=== PATIENT | female | born 2000 | race Caucasian/White ===

== ENCOUNTER → 2021-03-20 08:40 | Outpatient (CLI) | payer BC, SELFPAY ==
[2021-03-21 16:09] LABS: Immunoglobulin G 1134 mg/dL (586-1602); Immunoglobulin M 98 mg/dL (26-217)
[2021-03-21 17:14] LABS: Immunoglobulin A 47 mg/dL (87-352); t-Transglutaminase IgA <2 U/mL (0-3)
== END ==
PROVIDERS: PCP Internal Medicine; Referring Provider Internal Medicine Gastroenterology; Visit Provider Internal Medicine Gastroenterology
DX: R74.8 Abnormal levels of other serum enzymes (principal)
CPT/HCPCS: 36415; 82784; 83516

== ENCOUNTER → 2022-09-23 | Outpatient (CLI) | payer BC, SELFPAY ==
--- NOTE | 2022-09-23 13:43 | CT_ITS ---
STUDY: CT ABDOMEN AND PELVIS WITH CONTRAST REASON FOR EXAM: Female, 22 years old. K92.1 -- blood in the stool. RADIATION DOSAGE (If Supplied By Facility): CTDIvol = ( 22.9 ) mGy, DLP = ( 1233.11 ) mGycm TECHNIQUE: Transaxial images were obtained from the dome of the diaphragm to the symphysis pubis with oral contrast. Oral and amp; IV Readi-CAT and amp; 100mL Isovue-300 was administered. Sagittal and coronal images were reconstructed. Individualized dose optimization techniques were used for this CT. COMPARISON: None. FINDINGS: The visualized lung bases are unremarkable. The visualized portions of the heart are within normal limits. There is decreased attenuation of the liver consistent with steatosis. Normal gallbladder and extrahepatic biliary system. Normal spleen. Normal pancreas. Normal bilateral adrenal glands. Normal right kidney. Normal left kidney. Normal visualized stomach. Normal small intestine. Moderate amount of fecal material seen in the colon. The appendix is visualized and appears normal. Normal abdominal aorta. Normal inferior vena cava. Normal retroperitoneum. Normal urinary bladder. IUD is seen within the uterus. There is a 2.8 cm x 1.5 cm cyst in the left ovary. Follicles are seen in the right ovary. Normal abdominal wall. Normal osseous structures. CT/Abdomen/Pelvis WITH Contrast IMPRESSION: Diffuse fatty infiltration of the liver. Electronically Signed: Nishant Livingston MD at 14:32 EDT ,
== END | disposition home or self-care (01) ==
PROVIDERS: PCP Internal Medicine; Referring Provider Internal Medicine; Visit Provider Internal Medicine
DX: K92.1 Melena (principal)
CPT/HCPCS: 74177; Q9967

== ENCOUNTER → 2022-10-16 | Outpatient (CLI) | payer BC, SELFPAY ==
--- NOTE | 2022-10-16 08:08 | US_ITS ---
STUDY: ABDOMINAL ULTRASOUND - RIGHT UPPER QUADRANT REASON FOR VISIT: Female, 22 years old . Fatty infiltration of the liver. TECHNIQUE: Ultrasound evaluation of the right upper quadrant was performed with real-time and static linares-scale imaging. TECHNICAL QUALITY: Adequate. COMPARISON: None. FINDINGS: Liver: The liver is enlarged and measures 17.9 cm. There is increased echogenicity consistent with fatty infiltration. The bile ducts are within normal limits. There is hepatic color flow. The direction of portal flow is hepatopetal. There is no demonstrated mass lesion. Gallbladder: Normal distended gallbladder. The gallbladder wall measures 2.7 mm. There is a negative sonographic Cruz''s sign. There is no pericholecystic fluid. There are no gallstones. Common Bile Duct (C.B.D.): The common bile duct measures 3.1 mm. Pancreas: Normal size of the head, body and tail of the pancreas. There is normal echogenicity of the pancreas. There is no demonstrated pancreatic mass or cyst. Right Kidney: Normal size of the right kidney. The right kidney measures 11.7 cm x 4.9 cm x 4.7 cm. Normal renal cortex. The right cortex measures 1.4 cm. There is no demonstrated renal mass or cyst. There is no right hydronephrosis. US/Abdomen Limited IMPRESSION: Hepatomegaly and diffuse fatty infiltration of the liver. Electronically Signed: Nishant Livingston MD at 9:10 [facility] ,
--- NOTE | 2022-10-16 08:19 | US_ITS ---
STUDY: ABDOMINAL ULTRASOUND - ELASTOGRAPHY REASON FOR VISIT: Female, 22 years old. Fatty infiltration of the liver. TECHNIQUE: Liver stiffness measurements were obtained on a [employer] RS 85 ultrasound machine using a CA 1-7 probe following the SRU guidelines. 3 measurements were obtained using a 2-D-SWE method. TheIQR/M was 19% suggesting a quality data set. TECHNICAL QUALITY: Adequate. COMPARISON: Comparison is made with prior examination done earlier today. FINDINGS: Liver: Fatty infiltration of the liver. Median liver stiffness measured 7.1 kPa. US/Elastography Parenchyma/Organ IMPRESSION: Liver stiffness measures 7.1 kPa compatible with F2-F3 (Mild to moderate liver fibrosis) Metavir score. Electronically Signed: Nishant Livingston MD at 9:12 EST ,
== END | disposition home or self-care (01) ==
LOC: US 08:08
PROVIDERS: PCP Internal Medicine; Referring Provider Internal Medicine; Visit Provider Internal Medicine
DX: K76.0 Fatty (change of) liver, not elsewhere classified (principal)
CPT/HCPCS: 76705; 76981

== ENCOUNTER → 2022-10-31 | Outpatient (CLI) | payer BC, SELFPAY ==
[2022-10-31 10:03] LABS: Erythrocyte Sedimentation Rate 31 mm/hr (0-30)
[2022-10-31 10:05] LABS: Absolute Lymphocyte Count 1.68 X10^3/uL (0.83-4.51); Absolute Neutrophil Count 6.9 X10^3/uL (2.0-7.7); Basophil# 0.05 X10^3/uL; Basophil% 0.5 % (0-1); Eosinophil# 0.32 X10^3/uL; Eosinophils% 3.3 % (0-5); Hematocrit 41.2 % (37-47); Hemoglobin 13.3 g/dL (12.0-15.0); Lymphocyte # 1.68 X10^3/ul (0.83-4.51); Lymphocyte % 17.3 % (19-41); Mean Corp Hgb Conc 32.3 g/dL (32-36); Mean Corpuscular Hgb 27.5 pg (27.0-32.0); Mean Corpuscular Volume 85.3 fL (81-99); Mean Platelet Vol. 8.9 fl (6.2-12.0); Monocyte# 0.69 X10^3/uL; Monocyte% 7.1 % (0-10); NRBC Flagged by Analyzer 0 % (0-5); Neutrophil # 6.92 X10^3/uL (2.7-7.7); Neutrophil % 71.5 % (47-70); Platelet Count 377 K/mm3 (150-450); RBC Distribution Width CV 12.4 % (11.6-14.6); RBC Distribution Width SD 38.7 fl (35.1-43.9); Red Blood Count 4.83 M/mm3 (4.2-5.4); White Blood Count 9.7 K/mm3 (4.4-11.0)
[2022-10-31 10:22] LABS: Hemoglobin A1c 5.2 % (3.8-5.6)
[2022-10-31 10:43] LABS: ALB/GLOB Ratio 0.8 RATIO (0.9-2.4); AST(SGOT) 14 U/L (15-37); Alanine Aminotransfer ALT/SGPT 27 U/L (13-56); Albumin, Serum 3.8 g/dL (3.2-5.0); Alkaline Phosphatase 84 U/L (45-117); Anion Gap 6 (5-15); BUN 11 mg/dL (7-18); BUN/Creat Ratio 13.8 RATIO (10-20); Calcium,Total 9.3 mg/dL (8.5-10.1); Chloride 107 mmol/L (98-107); EST Glomerular Filtration Rate 95 mL/min (>60); Est Glom Filt Rate - Afr Amer 115 mL/min (>60); Ferritin 27 ng/mL (8-252); Globulin 4.6 g/dL (2.2-4.2); Glucose 88 mg/dL (74-106); LDH 170 U/L (84-246); Potassium 3.9 mmol/L (3.5-5.1); Protein, Total 8.4 g/dL (6.4-8.2); Sodium Level 138 mmol/L (136-145)
[2022-10-31 11:08] LABS: HIV - WCH Non-Reactive (Nonreactive)
[2022-10-31 12:54] LABS: Triglycerides 174 mg/dL
[2022-11-01 15:08] LABS: Anti-Centromere B Ab <0.2 AI (0.0-0.9); Anti-Chromatin <0.2 AI (0.0-0.9); Anti-Jo <0.2 AI (0.0-0.9); Anti-Scleroderma-70 AB <0.2 AI (0.0-0.9); Endomysial Antibody IgA Negative (Negative); Immunoglobulin A 60 mg/dL (87-352); RNP Ab 0.2 AI (0.0-0.9); SJOGREN'S Anti-SS-A test < 0.2 AI (0.0-0.9); SJOGREN'S Anti-SS-B test < 0.2 AI (0.0-0.9); Smith Ab <0.2 AI (0.0-0.9)
[2022-11-01 16:37] LABS: t-Transglutaminase IgA <2 U/mL (0-3)
[2022-11-01 16:38] LABS: Anti-Mitochondrial AB <20.0 Units (0.0-20.0); Anti-dsDNA Ab 1 IU/mL (0-9)
[2022-11-04 15:07] LABS: Albumin 4.1 g/dL (2.9-4.4); Alpha-1-Globulins 0.3 g/dL (0.0-0.4); Alpha-2-Globulins 1.1 g/dL (0.4-1.0); Angiotensin Convert Enzyme 55 U/L (14-82); Ceruloplasmin 37.2 mg/dL (19.0-39.0); Cytoplasmic Ab (C-ANCA) <1:20 titer (Neg:<1:20); Gamma Globulin 1.3 g/dL (0.4-1.8); HEPATITIS B SURFACE AG Negative (Negative); Hep C Antibodies <0.1 s/co ratio (0.0-0.9); Hepatitis A IgM Antibody Negative (Negative); Hepatitis B Core AB IgM Negative (Negative); Immunoglobulin A 61 mg/dL (87-352); Immunoglobulin E 441 IU/mL (6-495); Immunoglobulin G 1358 mg/dL (586-1602); Immunoglobulin M 161 mg/dL (26-217)
[2022-11-05 14:56] LABS: Pancreatic Elastase, Fecal 379 (>200)
[2022-11-05 16:31] LABS: Calprotectin, Stool 61 ug/g (0-120)
[2022-11-05 16:59] LABS: AFP, Tumor Marker 6.1 ng/mL (0.0-4.7); Anti-Smooth Muscle ABS 7 Units (0-19); Copper, Serum or Plasma 154 ug/dL (80-158); Haptoglobin 288 mg/dL (33-278); Perinuclear Ab (P-ANCA) <1:20 titer (Neg:<1:20)
== END | disposition home or self-care (01) ==
PROVIDERS: PCP Internal Medicine; Referring Provider Internal Medicine Gastroenterology; Visit Provider Internal Medicine Gastroenterology
DX: K76.0 Fatty (change of) liver, not elsewhere classified (principal); R19.7 Diarrhea, unspecified
CPT/HCPCS: 36415; 80053; 80074; 82105; 82140; 82164; 82390; 82525; 82653; 82728; 82784; 82785; 83010; 83036; 83516; 83615; 83630; 83993; 84165; 84478; 85025; 85652; 86140; 86225; 86235; 86255; 86256; 86334; 86703; 87177; 87209; 87329; 87493; 87506

== ENCOUNTER → 2022-11-20 | Outpatient (CLI) | payer BC, SELFPAY | END | disposition home or self-care (01) | PROVIDERS: PCP Internal Medicine; Visit Provider Internal Medicine Gastroenterology | DX: R19.7 Diarrhea, unspecified (principal) | CPT/HCPCS: 36415 ==

== ENCOUNTER → 2022-12-11 | Outpatient (CLI) | payer BC, SELFPAY ==
[2022-12-11 15:58] LABS: Absolute Lymphocyte Count 2.32 X10^3/uL (0.83-4.51); Absolute Neutrophil Count 4.7 X10^3/uL (2.0-7.7); Basophil# 0.05 X10^3/uL; Basophil% 0.6 % (0-1); Eosinophil# 0.28 X10^3/uL; Eosinophils% 3.5 % (0-5); Hematocrit 38.4 % (37-47); Hemoglobin 12.5 g/dL (12.0-15.0); Lymphocyte # 2.32 X10^3/ul (0.83-4.51); Lymphocyte % 28.7 % (19-41); Mean Corp Hgb Conc 32.6 g/dL (32-36); Mean Corpuscular Hgb 28.2 pg (27.0-32.0); Mean Corpuscular Volume 86.7 fL (81-99); Mean Platelet Vol. 9.1 fl (6.2-12.0); Monocyte# 0.73 X10^3/uL; NRBC Flagged by Analyzer 0 % (0-5); Neutrophil # 4.68 X10^3/uL (2.7-7.7); Neutrophil % 57.8 % (47-70); Platelet Count 396 K/mm3 (150-450); RBC Distribution Width CV 12.4 % (11.6-14.6); RBC Distribution Width SD 39.5 fl (35.1-43.9); Red Blood Count 4.43 M/mm3 (4.2-5.4); White Blood Count 8.1 K/mm3 (4.4-11.0)
[2022-12-11 16:06] LABS: Erythrocyte Sedimentation Rate 12 mm/hr (0-30)
[2022-12-11 16:27] LABS: CRP 7.47 mg/L (0.0-3.0)
== END | disposition home or self-care (01) ==
LOC: LAB 15:04
PROVIDERS: PCP Internal Medicine; Visit Provider Internal Medicine Gastroenterology
DX: K92.1 Melena (principal)
CPT/HCPCS: 36415; 85025; 85652; 86140

== ENCOUNTER 2023-02-04 05:27 | Day surgery (SDC) | payer OTHER, BC, SELFPAY ==
[2023-02-04 05:56] VITALS: BP 130/80; PULSE 98; RESP 18; TEMP 36.7; O2SAT 100; BMI 33.4
[2023-02-04] MEDS: Lactated Ringers 1,000 ML 15 ML IV (05:59)
[2023-02-04 06:00] LABS: Internal QC Validated? YES +Cl - CLEAR BKGD; Pregnancy, Urine Negative Negative
--- NOTE | 2023-02-04 06:30 | COLBX_PTH ---
PATIENT: ESTELLA VEGAS LOC: EN U#:[id number] AGE/SX: 22/ ROOM: RE02/04/[address]: Dr. Darío Jones DO : 2000 BED: DIS: 02/04/2023 SPEC #: [id number] RECD: 02/05/23 06:44 STATUS: NATHEN REShweta #: [id number] ANTONI: 02/04/23 06:[address]: Darío Jones DEPT: SURGICAL PATHOLOGY RECD BY: Kathy Weller ENTERED: 02/05/23 08:04 SP TYPE: COLON BX ARISTIDES DR: Dr. Sofiya Del Castillo DO Tissues: A - Ileum, NOS B - COLON BIOPSY Procedures: Surgery Specimen Level IV HEADER OPERATION: Colonoscopy with biopsy (MAC) PRE-OP DIAGNOSIS: Fatty liver, diarrhea, GERD TISSUE SUBMITTED: A ? Terminal ileum biopsy, B ? Random colon biopsy MICROSCOPIC DIAGNOSIS A. Terminal ileum, biopsy: Fragments of small intestinal mucosa, no pathologic diagnosis. B. Colon, random biopsy: Fragments of colonic mucosa, no pathologic diagnosis. MARIA:yee 02/06/2023 MICROSCOPIC DESCRIPTION Slides are reviewed. GROSS DESCRIPTION A - Received in fixative is one container labeled with the patient's name and designated terminal ileum. The specimen consists of two irregular fragments of light garcia soft tissue that in aggregate measure 0.8 x 0.5 x 0.1 cm. The specimen is totally submitted in one cassette. B - Received in fixative is one container labeled with the patient's name and designated random colon biopsy. The specimen consists of multiple irregular fragments of light garcia soft tissue that in aggregate measure 1.5 x 0.5 x 0.1 cm. The specimen is totally submitted in two cassettes. / MARIA:yee 02/05/2023 TC:4 CPT: 93388 x2
--- NOTE | 2023-02-04 06:36 | HP.PCM_ITS ---
History and Physical Date of Admission: 02/04/23 ?22 F who presents to the office today for Initial consult. Josey established with this clinic 10.31.22 with referral from PCP. Loose stools with blood have been an issue since August consistently for two weeks and intermittently since then without abdominal pain. Previously saw GI who diagnosed IBS early last year for chronic diarrhea and was started on colestipol QD which was helpful and continues with this. No colonoscopy performed. History of heartburn and has since changed her diet and with this change she does not have difficulty and no medication required. PMH anxiety which she feels is overall well controlled. FH great grandmother colon cancer CT abd/pel 09.23.22 noting hepatic steatosis; moderate fecal material; left ovarian cyst. US RUQ and elastography 10.16.22 hepatic measurement 17.9cm with fatty infiltration and stiffness 7.1 kPa F1/2. PCP started Vitamin E 800IU and recommended weight loss. ROS Const Constitutional: Positive for other (6 system ROS completed with pertinent findings in HPI otherwise normal.) Exam Const General: cooperative, healthy appearing, comfortable and no acute distress Nutritional Appearance: average body habitus and well nourished Orientation: alert, awake and oriented x3 HENMT Head: normal to inspection Ears: hearing grossly normal bilaterally and external ears normal Nose: external nose normal and no nasal discharge Eyes General: appearance normal, both eyes and all related structures Neck Neck: normal visual inspection Chest Chest palpation & inspection: normal inspection of the chest Resp Effort & Inspection: normal respiratory effort, able to speak in complete sentences and symmetric chest movement Cardio Rate: regular rate Pulses: radial pulses present Skin General: no rashes or lesions noted Neuro General: patient alert, patient awake, patient oriented x3 and gait normal Cognition: normal cognition Speech: speech normal Gait: normal gait Motor: muscle tone normal throughout Sensory Exam: no sensory deficits noted Extrem General: normal to inspection Psych Appearance: grossly normal Mental Status: mental status grossly normal Mood: congruent mood Affect: normal affect Speech and Movement: speech and movement normal Attitude: cooperative Thought Process: normal Thought Content: normal Judgment: judgment good Quality Reporting Tobacco Screening ([facility] 138) Smoking Status: Never smoker Assessment and Plan Assessment and Plan (1) Fatty liver: ?Status:?Chronic ?Plan: Nonalcoholic fatty liver disease.? 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 She had a FibroScan fibrosis score 7.9.? She had an ultrasound that displayed a liver size of 17.9? she only drinks alcohol once a week.? Triglyceride checked approximately 5 years ago with normal.? She has not.? She has not been checked for diabetes.? She does not have any family disease.? She has no autoimmune disease in the family.? She does not know if she has been checked for hepatitis C as she has no risk factors for chronic viral hepatitis.? She has not received any blood transfusions.? I recommend that she stop vitamin E at this time.? We will repeat her FibroScan in approximately 6 months we discussed in detail, weight loss strategies and the natural history of nonalcoholic fatty liver disease.? We will also get biochemical work-up to see if she has any underlying other disease process that would contribute to inflammation in the liver. (2) Diarrhea: ?Status:?Chronic ?Plan: She is not having much diarrhea at this time.? She had an IgA level and tissue transglutaminase checked about a year and a half ago.? Her IgA level was low and it was a IgA based tissue transglutaminase test.? She may need to be tested with HLA testing, antiendomysial antibody testing and tissue transglutaminase testing be IgG levels which were normal previous exam. (3) GERD (gastroesophageal reflux disease): ?Status:?Chronic ?Plan: She is not having any problems or gastroesophageal reflux at this time. ? ? ? Orders: Orders HIV - [facility] Today K76.0 - Fatty (change of) liver, not elsewhere classified, R19.7 - Diarrhea, unspecified ? Comprehensive Metabolic Profil Today K76.0 - Fatty (change of) liver, not elsewhere classified, R19.7 - Diarrhea, unspecified ? CRP Today K76.0 - Fatty (change of) liver, not elsewhere classified, R19.7 - Diarrhea, unspecified ? Ferritin Today K76.0 - Fatty (change of) liver, not elsewhere classified, R19.7 - Diarrhea, unspecified ? LDH Today K76.0 - Fatty (change of) liver, not elsewhere classified, R19.7 - Diarrhea, unspecified ? Hemoglobin A1c Today K76.0 - Fatty (change of) liver, not elsewhere classified, R19.7 - Diarrhea, unspecified ? CBC W/Diff, Automated Today K76.0 - Fatty (change of) liver, not elsewhere classified, R19.7 - Diarrhea, unspecified ? Erythrocyte Sed Rate Today K76.0 - Fatty (change of) liver, not elsewhere classified, R19.7 - Diarrhea, unspecified ? Anti-Mitochondrial AB Today K76.0 - Fatty (change of) liver, not elsewhere classified, R19.7 - Diarrhea, unspecified ? ANGEL Comprehensive Panel Today K76.0 - Fatty (change of) liver, not elsewhere classified, R19.7 - Diarrhea, unspecified ? Calprotectin, Stool Today K76.0 - Fatty (change of) liver, not elsewhere classified, R19.7 - Diarrhea, unspecified ? Stool Lactoferrin/WBC Today K76.0 - Fatty (change of) liver, not elsewhere classified, R19.7 - Diarrhea, unspecified ? Hepatitis Panel Acute Today K76.0 - Fatty (change of) liver, not elsewhere classified, R19.7 - Diarrhea, unspecified ? Angiotensin Convert Enzyme Today K76.0 - Fatty (change of) liver, not elsewhere classified, R19.7 - Diarrhea, unspecified ? AFP, Tumor Marker Today K76.0 - Fatty (change of) liver, not elsewhere classified, R19.7 - Diarrhea, unspecified ? ANCA Today K76.0 - Fatty (change of) liver, not elsewhere classified, R19.7 - Diarrhea, unspecified ? Anti-Smooth Muscle ABS Today K76.0 - Fatty (change of) liver, not elsewhere classified, R19.7 - Diarrhea, unspecified ? Celiac Disease Profile Today K76.0 - Fatty (change of) liver, not elsewhere classified, R19.7 - Diarrhea, unspecified ? Ceruloplasmin Today K76.0 - Fatty (change of) liver, not elsewhere classified, R19.7 - Diarrhea, unspecified ? Copper, Serum or Plasma Today K76.0 - Fatty (change of) liver, not elsewhere classified, R19.7 - Diarrhea, unspecified ? Immunoglobulins G/A/M/E Today K76.0 - Fatty (change of) liver, not elsewhere classified, R19.7 - Diarrhea, unspecified ? Haptoglobin Today K76.0 - Fatty (change of) liver, not elsewhere classified, R19.7 - Diarrhea, unspecified ? SRIKANTH + Protein Elect, Serum Today K76.0 - Fatty (change of) liver, not elsewhere classified, R19.7 - Diarrhea, unspecified ? Ammonia Today K76.0 - Fatty (change of) liver, not elsewhere classified, R19.7 - Diarrhea, unspecified ? OVA+PARA w/Giardia EIA [id number] Today R19.7 - Diarrhea, unspecified ? CDIFF (PCR) Today R19.7 - Diarrhea, unspecified ? ENTERIC PATHOGEN PANEL STOOL Today K58.9 - Irritable bowel syndrome without diarrhea, R19.7 - Diarrhea, unspecified ? Pancreatic Elastase, Fecal Today R19.7 - Diarrhea, unspecified ? I have examined the patient and the H&P has been reviewed. There are no clinical changes since date of exam.
[2023-02-04 07:06] VITALS: BP 130/80; BP 96/64; PULSE 68; RESP 14; TEMP 36.2; O2SAT 97
[2023-02-04 07:10] VITALS: BP 130/80; BP 97/67; PULSE 72; RESP 16; O2SAT 98
[2023-02-04 07:15] VITALS: BP 130/80; BP 96/67; PULSE 66; RESP 16; O2SAT 100
--- NOTE | 2023-02-04 07:15 | OP.COLON_ITS ---
Patient Name: Josey Fernandez Procedure Date: 02/04/2023 6:26 AM Date of : 2000 Age: 22 Procedure: Colonoscopy Indications: Generalized abdominal pain, Chronic diarrhea Providers: Darío Jones DO Medicines: Monitored Anesthesia Care Patient Profile: This is a 22 year old female. Refer to note in patient chart for documentation of history and physical. Last Colonoscopy: none. The patient's first colonoscopy is today. Complications: No immediate complications. Procedure: Pre-Anesthesia Assessment: - Prior to the procedure, a History and Physical was performed, and patient medications and allergies were reviewed. The risks and benefits of the procedure and the sedation options and risks were discussed with the patient. All questions were answered and informed consent was obtained. Patient identification and proposed procedure were verified by the physician in the pre-procedure area. Mental Status Examination: alert and oriented. Airway Examination: normal oropharyngeal airway and neck mobility. Respiratory Examination: clear to auscultation. CV Examination: normal. Prophylactic Antibiotics: The patient does not require prophylactic antibiotics. Prior Anticoagulants: The patient has taken no previous anticoagulant or antiplatelet agents. ASA Grade Assessment: II - A patient with mild systemic disease. After reviewing the risks and benefits, the patient was deemed in satisfactory condition to undergo the procedure. The anesthesia plan was to use monitored anesthesia care (MAC). Immediately prior to administration of medications, the patient was re-assessed for adequacy to receive sedatives. The heart rate, respiratory rate, oxygen saturations, blood pressure, adequacy of pulmonary ventilation, and response to care were monitored throughout the procedure. The physical status of the patient was re-assessed after the procedure. After I obtained informed consent, the scope was passed under direct vision. Throughout the procedure, the patient's blood pressure, pulse, and oxygen saturations were monitored continuously. The colonoscope was introduced through the anus and advanced to the terminal ileum. The colonoscopy was performed without difficulty. The patient tolerated the procedure well. The quality of the bowel preparation was good. Scope In: 6:48:19 AM Scope Withdrawal Time 0 hours 10 minutes 29 seconds Scope Out: 7:02:13 AM Total Procedure Duration Time 0 hours 13 minutes 54 seconds Findings: The perianal and digital rectal examinations were normal. An area of mildly congested mucosa was found in the recto-sigmoid colon and at the hepatic flexure. Biopsies were taken with a cold forceps for histology. Verification of patient identification for the specimen was done. Estimated blood loss was minimal. The terminal ileum appeared normal. Biopsies were taken with a cold forceps for histology. Verification of patient identification for the specimen was done. Estimated blood loss was minimal. Impression: - Congested mucosa in the recto-sigmoid colon and at the hepatic flexure. Biopsied. - The examined portion of the ileum was normal. Biopsied. Recommendation: - Discharge patient to home. - Resume previous diet today. - Continue present medications. - Await pathology results. - Repeat colonoscopy for surveillance based on pathology results. Procedure Code(s): --- Professional --- 98281, Colonoscopy, flexible; with biopsy, single or multiple CPT copyright 2017 [employer]. All rights reserved. The codes documented in this report are preliminary and upon swimming pool maintenance supervisor review may be revised to meet current compliance requirements. Darío Jones DO 02/04/2023 7:14:54 AM This report has been signed electronically. Number of Addenda: 0 Note Initiated On: 02/04/2023 6:26 AM
--- NOTE | 2023-02-04 07:16 | OP.CCLET_ITS ---
02/04/2023 Sofiya Del Castillo [address] [place] [address] Re : Colonoscopy procedure for Josey Fernandez Dear Dr. Del Castillo This procedure was performed on Saturday, February 04, 2023. My impressions and recommendations are as follows: Impressions : - Congested mucosa in the recto-sigmoid colon and at the hepatic flexure. Biopsied. - The examined portion of the ileum was normal. Biopsied. Recommendations : - Discharge patient to home. - Resume previous diet today. - Continue present medications. - Await pathology results. - Repeat colonoscopy for surveillance based on pathology results. My findings are described in the full procedure note, which is enclosed. If I can be of further assistance, please feel free to contact me at . Sincerely, Darío Jones, 02/04/2023 7:14:54 AM This report has been signed electronically.
[2023-02-04 07:21] VITALS: BP 130/80; BP 95/72; PULSE 65; RESP 16; TEMP 36.2; O2SAT 98
[2023-02-04 07:37] VITALS: BP 130/80
== END 2023-02-04 07:45 | disposition home or self-care (01) ==
LOC: EN 05:30 → AC 05:30
PROVIDERS: Anesthesiology; PCP Internal Medicine; Referring Provider Internal Medicine; Visit Provider Internal Medicine Gastroenterology
PROC: 0DJD8ZZ Inspection of Lower Intestinal Tract, Via Natural or Artificial Opening Endoscopic (ICD-10-PCS; CPT 45378; principal; 2023-02-04 06:25)
DX: K58.0 Irritable bowel syndrome with diarrhea (principal); K70.9 Alcoholic liver disease, unspecified; K76.0 Fatty (change of) liver, not elsewhere classified; K21.9 Gastro-esophageal reflux disease without esophagitis
CPT/HCPCS: 45380; 81025; 88305; J7120; J2405

== ENCOUNTER → 2023-04-11 | Outpatient (CLI) | payer OTHER, BC, SELFPAY ==
[2023-04-11 08:32] LABS: Erythrocyte Sedimentation Rate 9 mm/hr (0-30)
[2023-04-11 08:55] LABS: CRP 5.65 mg/L (0.0-3.0)
[2023-04-16 17:08] LABS: Beef <0.10 kU/L (Class 0); Chocolate <0.10 kU/L (Class 0); Clam 0.17 kU/L (Class 0/I); Codfish <0.10 kU/L (Class 0); Corn 0.57 kU/L (Class II); Egg, White 0.19 kU/L (Class 0/I); Egg, Whole 0.25 kU/L (Class 0/I); Milk (Cow) <0.10 kU/L (Class 0); Peanut 0.91 kU/L (Class II); Pork <0.10 kU/L (Class 0); SCALLOP 0.24 kU/L (Class 0/I); SESAME SEED 0.58 kU/L (Class II); Shrimp 1.78 kU/L (Class III); Soybean 0.36 kU/L (Class I); Wheat 1.02 kU/L (Class II)
== END | disposition home or self-care (01) ==
PROVIDERS: PCP Internal Medicine; Referring Provider Internal Medicine Gastroenterology; Visit Provider Internal Medicine Gastroenterology
DX: K21.9 Gastro-esophageal reflux disease without esophagitis (principal); K92.1 Melena
CPT/HCPCS: 36415; 85652; 86003; 86005; 86140

== ENCOUNTER → 2023-07-11 | Outpatient (CLI) | payer OTHER, SELFPAY | END | disposition home or self-care (01) | LOC: LABSPEC 08:47 | PROVIDERS: PCP Family Medicine; Referring Provider Specialist; Visit Provider Specialist | DX: K52.9 Noninfective gastroenteritis and colitis, unspecified (principal); A07.1 Giardiasis [lambliasis] | CPT/HCPCS: 87177; 87209; 87329 ==

== ENCOUNTER → 2023-12-11 | Outpatient (CLI) | payer OTHER, SELFPAY ==
--- OUTSIDE RECORDS SUMMARY | 2023-12-11 21:19 | XMS RPT_ITS | CCD ---
Author Name Unknown Address [address] [place] [address] Organization [facility] Care Team Providers [facility] Courtesy Clerk Name Role Phone FERNANDO CERVANTES Unavailable Unavailable REFERRED, SELF Unavailable Unavailable FERNANDO CERVANTES Unavailable Unavailable Sofiya Del Castillo Unavailable ANTWAN Cervantes Unavailable Unavailable Elzbieta Castle Unavailable Unavailable Unavailable Unavailable Jessica Espinosa Unavailable Unavailable Graham Downs Unavailable Sofiya Del Castillo DO Unavailable Graham Downs Unavailable Elzbieta Castle LPN Unavailable Unavailable Niyah Abebe LPN Unavailable Unavailable ANTWAN Cervantes LPN Unavailable Unavailable Unavailable Unavailable Lacey Lambert Unavailable [phone] Xochilt Roth MD Unavailable Sofiya Del Castillo DO Unavailable Xochilt Roth MD Unavailable Friend, Dr. Chanel Unavailable [phone] Sasha Mora MA Unavailable Unavailable Sanjay Segovia LPN Unavailable Unavailable Sofiya Del Castillo DO Attending Unavailable Sofiya Del Castillo DO Consulting Unavailable Medications Completed/Discontinued Medications Medication Drug Class(es) Dates Sig (Normalized) Sig (Original) amoxicillin 875 mg oral tablet (17 sources) Penicillin-class Antibacterial Start: 01-10-2022 End: 10-03-2022 take 1 tablet by mouth twice daily Amoxicillin 875 MG Oral Tablet 1 (one) Tablet bid for 0 days Quantity: 20 {Tablet} Refills: 0 Ordered: 03-Oct-2022 Sanjay Segovia LPN Start : 10-Jan-2022 End : 03-Oct-2022 Inactive colestipol hydrochloride 1000 mg oral tablet (13 sources) Bile Acid Sequestrant Start: 09-09-2022 End: 10-09-2022 take 1 tablet by mouth once daily Colestipol HCl 1 GM Oral Tablet 1 (one) Tablet daily for 30 days Quantity: 30 {Tablet} Refills: 0 Ordered: 21-Oct-2022 Magdalene HERNANDEZSofiya Magdalene HERNANDEZ Sofiya Start : 09-Sep-2022 End : 09-Oct-2022 Inactive Comments: Per gastro Problems Active Problems Problem Classification Problem Date Documented Da te Episodic/Chronic Anxiety disorders (20 sources) Anxiety; Translations: [Anxiety] 02-23-2020 Chronic Gastrointestinal hemorrhage (20 sources) Hematochezia; Translations: [Blood in stool] 09-09-2022 Episodic Immunizations and screening for infectious disease (20 sources) Patient encounter status; Translations: [Screening for HPV (human papillomavirus) (Renamed from Encounter for screening for human papillomavirus (HPV))] 02-23-2020 Episodic Mycoses (20 sources) Dermatophytosis; Translations: [Ringworm] 08-14-2020 Episodic Other gastrointestinal disorders (20 sources) Irritable bowel syndrome; Translations: [IBS (irritable bowel syndrome)] 09-09-2022 Chronic Other gastrointestinal disorders (20 sources) Diarrhea; Translations: [Diarrhea] 01-19-2021 Episodic Other liver diseases (16 sources) Non-alcoholic fatty liver; Translations: [Fatty liver disease, nonalcoholic] 10-03-2022 Chronic Other liver diseases (3 sources) Fatty (change of) liver, not elsewhere classified; Translations: [Fatty liver disease, nonalcoholic] 10-04-2022 Chronic Other nutritional; endocrine; and metabolic disorders (19 sources) Body mass index 25-29 - overweight; Translations: [BMI 28.0-28.9,adult] Resolved: 02-23-2020 08-14-2020 Chronic Other nutritional; endocrine; and metabolic disorders (20 sources) Body mass index 30+ - obesity; Translations: [BMI 33.0-33.9,adult] 12-31-2021 Chronic Other nutritional; endocrine; and metabolic disorders (20 sources) Body mass index 25-29 - overweight; Translations: [BMI 28.0-28.9,adult] Resolved: 12-31-2021 1 Episodic Other nutritional; endocrine; and metabolic disorders (20 sources) Overweight in adulthood with body mass index of 25 or more but less than 30; Translations: [BMI 27.0-27.9,adult] Resolved: 12-31-2021 08-14-2020 Episodic Other upper respiratory infections (20 sources) Acute sinusitis; Translations: [Acute sinusitis] 01-10-2022 Episodic Residual codes; unclassified (20 sources) Influenza vaccination declined; Translations: [Influenza vaccination declined (Renamed from Refused influenza vaccine)] 02-23-2020 Episodic Residual codes; unclassified (20 sources) Non-smoker; Translations: [Non-smoker] 01-19-2021 Episodic Unclassified (20 sources) Unclassified (20 sources) Patient encounter status; Translations: [Family planning] 02-23-2020 Unclassified (20 sources) Non-smoker; Translations: [Non-smoker] 02-23-2020 Unclassified (20 sources) BMI 28.0-28.9,adult Past or Other Problems Problem Classification Problem Date Documented Da te Episodic/Chronic Unclassified (20 sources) Screening for HPV (human papillomavirus) (Renamed from Encounter for screening for human papillomavirus (HPV)); Translations: [Patient encounter status] 02-23-2020 Unclassified (20 sources) Influenza vaccination declined; Translations: [Influenza vaccination declined (Renamed from Refused influenza vaccine)] 02-23-2020 Unclassified (20 sources) Pregnancies (); Translations: [Pregnancies ()] 02-23-2020 Results Test Name Value Interpretation Reference Range Facil ity Vital Signs Date Time Vital Sign Value Performing Clinician Facility 10-03-2022 10:58-0500 Body height 167.64 cm Sanjay Segovia MORTGAGE LOAN ASSISTANT [facility] Work Phone: 10-03-2022 10:58-0500 Body mass index (BMI) [Ratio] 33.25 kg/m2 Sanjay Segovia LPN [facility] Work Phone: 10-03-2022 10:58-0500 Body surface area Derived from formula 2.03 m2 Sanjay Segovia MORTGAGE LOAN ASSISTANT [facility] Work Phone: 10-03-2022 10:58-0500 Body weight 93.44 kg Sanjay Segovia LPN [facility] Work Phone: 09-09-2022 08:50-0400 Body height 167.64 cm Sasha Mora MA [facility] Work Phone: 09-09-2022 08:50-0400 Body mass index (BMI) [Ratio] 33.25 kg/m2 Sasha Mora MA [facility] Work Phone: 09-09-2022 08:50-0400 Body surface area Derived from formula 2.03 m2 Sasha Mora MA [facility] Work Phone: 09-09-2022 08:50-0400 Body temperature 97.2 [degF] Sasha Mora MA [facility] Work Phone: 09-09-2022 08:50-0400 Body weight 93.44 kg Sasha Mora MA [facility] Work Phone: 09-09-2022 08:50-0400 Diastolic blood pressure 78 mm[Hg] Sasha Mora MA [facility] Work Phone: Encounters Encounter Date Encounter Type Care Provider Facility Start: 10-04-2022 End: 10-04-2022 Annotation/Addendum Sofiya Magdalene DO Work Phone: [facility] Start: 10-03-2022 Review Sofiya Fearo n DO Work Phone: [facility] Start: 10-03-2022 End: 10-03-2022 Office outpatient visit 10 minutes Sofiya Magdalene DO Work Phone: [facility] Start: 09-26-2022 ambulatory Sofiya Magdalene DO [facility] Start: 09-13-2022 End: 09-13-2022 Annotation/Addendum Sofiya Magdalene DO Work Phone: [facility] Start: 09-09-2022 Review Sofiya Fearo n DO Work Phone: [facility] Start: 09-09-2022 End: 09-09-2022 Office outpatient visit 10 minutes Sofiya Magdalene DO Work Phone: [facility] Start: 01-10-2022 End: 01-10-2022 Periodic preventive med est patient 40-64yrs Sofiya Magdalene DO Work Phone: [facility] Start: 12-31-2021 End: 12-31-2021 Office outpatient visit 10 minutes Sofiya Magdalene DO Work Phone: [facility] Start: 03-13-2021 End: 03-13-2021 Annotation/Addendum Sofiya Magdalene DO Work Phone: [facility] Start: 03-06-2021 End: 03-06-2021 Annotation/Addendum Sofiya Philippeon [facility] Start: 01-19-2021 End: 01-19-2021 Office outpatient visit 15 minutes Sofiya Magdalene [facility] Start: 01-04-2021 End: 01-04-2021 Phone Encounter Sofiya Del Castillo [facility] Start: 12-28-2020 End: 12-28-2020 Office outpatient visit 15 minutes Sofiya Magdalene [facility] Start: 08-14-2020 End: 08-14-2020 Annotation/Addendum Sofiya Magdalene [facility] Start: 02-23-2020 End: 02-23-2020 Office outpatient visit 15 minutes Sofiya Magdalene [facility] Start: 09-23-2019 End: 09-23-2019 Office outpatient visit 10 minutes Sofiya Magdalene [facility] Start: 07-30-2019 End: 07-30-2019 Office outpatient visit 15 minutes Sofiya Magdalene [facility] Start: 02-19-2019 End: 02-19-2019 Initial preventive medicine new pt age 18-39yrs Sofiya Magdalene [facility] Start: 02-19-2019 End: 02-19-2019 Patient encounter procedure Sofiya Magdalene DO Work Phone: [facility] Start: 03-13-2018 End: 03-13-2018 Ambulatory FERNANDO [facility]enez [facility] Patient encounter procedure ANTWAN Cervantes LPN [facility] Work Phone: Patient encounter procedure ANTWAN Cervantes MORTGAGE LOAN ASSISTANT [facility] Work Phone: Patient encounter procedure Sanjay Segovia [facility] Work Phone: Procedures Date Procedure Procedure Detail Performing Clinician Start: 02-04-2023 End: 02-04-2023 Colonoscopy Report Procedure Note: See Note; NOTES: [facility] Medical Records Department [address] [place] [address] Colonoscopy Report MR#: [id number] Acct: [id number] Name: ESTELLA VEGAS Rep #: [id number] : 2000 22 From: Darío Jones DO PCP: Dr. Sofiya Del Castillo DO Status:[facility] Patient Name: Estella Vegas Procedure Date: 02/04/2023 6:26 AM Date of : 2000 Age: 22 Procedure: Colonoscopy Indications: Generalized abdominal pain, Chronic diarrhea Providers: Darío Jones DO Medicines: Monitored Anesthesia Care Patient Profile: This is a 22 year old female. Refer to note in patient chart for documentation of history and physical. Last Colonoscopy: none. The patient's first colonoscopy is today. Complications: No immediate complications. Procedure: Pre-Anesthesia Assessment: - Prior to the procedure, a History and Physical was performed, and patient medications and allergies were reviewed. The risks and benefits of the procedure and the sedation options and risks were discussed with the patient. All questions were answered and informed consent was obtained. Patient identification and proposed procedure were verified by the physician in the pre-procedure area. Mental Status Examination: alert and oriented. Airway Examination: normal oropharyngeal airway and neck mobility. Respiratory Examination: clear to auscultation. CV Examination: normal. Prophylactic Antibiotics: The patient does not require prophylactic antibiotics. Prior Anticoagulants: The patient has taken no previous anticoagulant or antiplatelet agents. ASA Grade Assessment: II - A patient with mild systemic disease. After reviewing the risks and benefits, the patient was deemed in satisfactory condition to undergo the procedure. The anesthesia plan was to use monitored anesthesia care (MAC). Immediately prior to administration of medications, the patient was re-assessed for adequacy to receive sedatives. The heart rate, respiratory rate, oxygen saturations, blood pressure, adequacy of pulmonary ventilation, and response to care were monitored throughout the procedure. The physical status of the patient was re-assessed after the procedure. After I obtained informed consent, the scope was passed under direct vision. Throughout the procedure, the patient's blood pressure, pulse, and oxygen saturations were monitored continuously. The colonoscope was introduced through the anus and advanced to the terminal ileum. The colonoscopy was performed without difficulty. The patient tolerated the procedure well. The quality of the bowel preparation was good. Scope In: 6:48:19 AM Scope Withdrawal Time 0 hours 10 minutes 29 seconds Scope Out: 7:02:13 AM Total Procedure Duration Time 0 hours 13 minutes 54 seconds Findings: The perianal and digital rectal examinations were normal. An area of mildly congested mucosa was found in the recto-sigmoid colon and at the hepatic flexure. Biopsies were taken with a cold forceps for histology. Verification of patient identification for the specimen was done. Estimated blood loss was minimal. The terminal ileum appeared normal. Biopsies were taken with a cold forceps for histology. Verification of patient identification for the specimen was done. Estimated blood loss was minimal. Impression: - Congested mucosa in the recto-sigmoid colon and at the hepatic flexure. Biopsied. - The examined portion of the ileum was normal. Biopsied. Recommendation: - Discharge patient to home. - Resume previous diet today. - Continue present medications. - Await pathology results. - Repeat colonoscopy for surveillance based on pathology results. Procedure Code(s): --- Professional --- 73749, Colonoscopy, flexible; with biopsy, single or multiple CPT copyright 2017 [employer]. All rights reserved. The codes documented in this report are preliminary and upon kettle hand review may be revised to meet current compliance requirements. Darío Jones DO 02/04/2023 7:14:54 AM This report has been signed electronically. Number of Addenda: 0 Note Initiated On: 02/04/2023 6:26 AM 02/04/23 0715 Date Darío Jones DO Cosigner Signature: Date (if indicated) CC: Dr. Sofiya Del Castillo DO; Darío Jones DO Date Dictated: 02/04/23625 Date Transcribed: Male Impersonator: KACI Signed Sofiya Del Castillo DO Work Phone: Start: 02-04-2023 End: 02-04-2023 History and Physical Exam Procedure Note: See Note; NOTES: [facility] Medical Records Department [address] [place] [address] History Physical Exam 02/04/23635 MR#: [id number] Acct: [id number] Name: ESTELLA VEGAS Rep #: [id number] : 2000 22 From: Darío Jones DO PCP: Dr. Sofiya Del Castillo DO Status:[facility] Location: [place] [address] History and Physical Date of Admission: 02/04/23 ???22 F who presents to the office today for Initial consult. Estella established with this clinic 10.31.22 with referral from PCP. Loose stools with blood have been an issue since August consis tently for two weeks and intermittently since then without abdominal pain. Previously saw GI who diagnosed IBS early last year for chronic diarrhea and was started on colestipol QD which was helpful and continues with this. No colonoscopy performed. History of heartburn and has since changed her diet and with this change she does not have difficulty and no medication required. PMH anxiety which she feels is overall well controlled. FH great grandmother colon cancer CT abd/pel 09.23.22 noting hepatic steatosis; moderate fecal material; left ovarian cyst. US RUQ and elastography 10.16.22 hepatic measurement 17.9cm with fatty infiltration and stiffness 7.1 kPa F1/2. PCP started Vitamin E 800IU and recommended weight loss. ROS Const Constitutional: Positive for other (6 system ROS completed with pertinent findings in HPI otherwise normal.) Exam Const General: cooperative, healthy appearing, comfortable and no acute distress Nutritional Appearance: average body habitus and well nourished Orientation: alert, awake and oriented x3 [facility] Head: normal to inspection Ears: hearing grossly normal bilaterally and external ears normal Nose: external nose normal and no nasal discharge Eyes General: appearance normal, both eyes and all related structures Neck Neck: normal visual inspection Chest Chest palpation inspection: normal inspection of the chest Resp Effort Inspection: normal respiratory effort, able to speak in complete sentences and symmetric chest movement Cardio Rate: regular rate Pulses: radial pulses present Skin General: no rashes or lesions noted Neuro General: patient alert, patient awake, patient oriented x3 and gait normal Cognition: normal cognition Speech: speech normal Gait: normal gait Motor: muscle tone normal throughout Sensory Exam: no sensory deficits noted Extrem General: normal to inspection Psych Appearance: grossly normal Mental Status: mental status grossly normal Mood: congruent mood Affect: normal affect Speech and Movement: speech and movement normal Attitude: cooperative Thought Process: normal Thought Content: normal Judgment: judgment good Quality Reporting Tobacco Screening ([facility] 138) Smoking Status: Never smoker Assessment and Plan Assessment and Plan (1) Fatty liver: ?Status:???Chronic ?Plan: Nonalcoholic fatty liver disease.??? Alcohol liver disease with subsequen On CT scan.??? She had a FibroScan fibrosis score 7.9.??? She had an ultrasound that displayed a liver size of 17.9??? she only drinks alcohol once a week.??? Triglyceride checked approximately 5 years ago with normal.??? She has not.??? She has not been checked for diabetes.??? She does not have any family disease.??? She has no autoimmune disease in the family.??? She does not know if she has been checked for hepatitis C as she has no risk factors for chronic viral hepatitis.??? She has not received any blood transfusions.??? I recommend that she stop vitamin E at this time.??? We will repeat her FibroScan in approximately 6 months we discussed in detail, weight loss strategies and the natural history of nonalcoholic fatty liver disease.??? We will also get biochemical work-up to see if she has any underlying other disease process that would contribute to inflammation in the liver. (2) Diarrhea: ?Status:???Chronic ?Plan: She is not having much diarrhea at this time.??? She had an IgA level and tissue transglutaminase checked about a year and a half ago.??? Her IgA level was low and it was a IgA based tissue transglutaminase test.??? She may need to be tested with HLA testing, antiendomysial antibody testing and tissue transglutaminase testing be IgG levels which were normal previous exam. (3) GERD (gastroesophageal reflux disease): ?Status:???Chronic ?Plan: She is not having any problems or gastroesophageal reflux at this time. ? Orders: Orders HIV - [facility] Today K76.0 - Fatty (change of) liver, not elsewhere classified, R19.7 - Diarrhea, unspecified ??? Comprehensive Metabolic Profil Today K76.0 - Fatty (change of) liver, not elsewhere classified, R19.7 - Diarrhea, unspecified ??? CRP Today K76.0 - Fatty (change of) liver, not elsewhere classified, R19.7 - Diarrhea, unspecified ??? Ferritin Today K76.0 - Fatty (change of) liver, not elsewhere classified, R19.7 - Diarrhea, unspecified ??? LDH Today K76.0 - Fatty (change of) liver, not elsewhere classified, R19.7 - Diarrhea, unspecified ??? Hemoglobin A1c Today K76.0 - Fatty (change of) liver, not elsewhere classified, R19.7 - Diarrhea, unspecified ??? CBC W/Diff, Automated Today K76.0 - Fatty (change of) liver, not elsewhere classified, R19.7 - Diarrhea, unspecified ??? Erythrocyte Sed Rate Today K76.0 - Fatty (change of) liver, not elsewhere classified, R19.7 - Diarrhea, unspecified ??? Anti-Mitochondrial AB Today K76.0 - Fatty (change of) liver, not elsewhere classified, R19.7 - Diarrhea, unspecified ??? ANGEL Comprehensive Panel Today K76.0 - Fatty (change of) liver, not elsewhere classified, R19.7 - Diarrhea, unspecified ??? Calprotectin, Stool Today K76.0 - Fatty (change of) liver, not elsewhere classified, R19.7 - Diarrhea, unspecified ??? Stool Lactoferrin/WBC Today K76.0 - Fatty (change of) liver, not elsewhere classified, R19.7 - Diarrhea, unspecified ??? Hepatitis Panel Acute Today K76.0 - Fatty (change of) liver, not elsewhere classified, R19.7 - Diarrhea, unspecified ??? Angiotensin Convert Enzyme Today K76.0 - Fatty (change of) liver, not elsewhere classified, R19.7 - Diarrhea, unspecified ??? AFP, Tumor Marker Today K76.0 - Fatty (change of) liver, not elsewhere classified, R19.7 - Diarrhea, unspecified ??? ANCA Today K76.0 - Fatty (change of) liver, not elsewhere classified, R19.7 - Diarrhea, unspecified ??? Anti-Smooth Muscle ABS Today K76.0 - Fatty (change of) liver, not elsewhere classified, R19.7 - Diarrhea, unspecified ??? Celiac Disease Profile Today K76.0 - Fatty (change of) liver, not elsewhere classified, R19.7 - Diarrhea, unspecified ??? Ceruloplasmin Today K76.0 - Fatty (change of) liver, not elsewhere classified, R19.7 - Diarrhea, unspecified ??? Copper, Serum or Plasma Today K76.0 - Fatty (change of) liver, not elsewhere classified, R19.7 - Diarrhea, unspecified ??? Immunoglobulins G/A/M/E Today K76.0 - Fatty (change of) liver, not elsewhere classified, R19.7 - Diarrhea, unspecified ??? Haptoglobin Today K76.0 - Fatty (change of) liver, not elsewhere classified, R19.7 - Diarrhea, unspecified ??? SRIKANTH + Protein Elect, Serum Today K76.0 - Fatty (change of) liver, not elsewhere classified, R19.7 - Diarrhea, unspecified ??? Ammonia Today K76.0 - Fatty (change of) liver, not elsewhere classified, R19.7 - Diarrhea, unspecified ??? OVA+PARA w/Giardia EIA [id number] Today R19.7 - Diarrhea, unspecified ??? CDIFF (PCR) Today R19.7 - Diarrhea, unspecified ??? ENTERIC PATHOGEN PANEL STOOL Today K58.9 - Irritable bowel syndrome without diarrhea, R19.7 - Diarrhea, unspecified ??? Pancreatic Elastase, Fecal Today R19.7 - Diarrhea, unspecified ??? I have examined the patient and the H P has been reviewed. There are no clinical changes since date of exam. 02/04/23 0637 <Electronically signed by Darío Jones DO> Cosigner Signature (if applicable): CC: Dr. Sofiya Del Castillo DO; Darío Jones DO Signed Sofiya Del Castillo DO Work Phone: Start: 11-11-2022 End: 11-11-2022 [facility] Office Visit Report Procedure Note: See Note; NOTES: [facility] [address] [place] [address]. [address] [place] [address] OFFICE VISIT Date of Service: 11/11/22 MR#: [id number] Acct: [id number] Name: ESTELLA VEGAS Rep #: [id number] : 2000 Provider: PAWAN kay Age/Sex: 22/F Location: [facility] [place] Status: Signed Intake Vital Signs 11/11/22 10:55 11/11/22 10:58 Height 5 ft 6 in 5 ft 6 in Weight: 215 lb BMI 34.7 BP 123/84 H Intake Visit Reasons: IUD removal Sales Agent Trading Stamps Required: No Is patient in pain?: No Allergies No Known Allergies Allergy (Verified 11/11/22 10:55) Medications escitalopram oxalate 5 mg tablet (Lexapro) 5 mg PO DAILY 06/29/21 [History Confirmed 11/11/22] norethindrone (contraceptive) 0.35 mg tablet (Myra) 0.35 mg PO QDAY #84 tabs 11/11/22 [Rx Confirmed 11/11/22] Post menopausal: No Patient : No : No PFSH Medical History Anxiety Bloody stool IBS (irritable bowel syndrome) Family History Mother Thyroid disorder Grandmother Thyroid disorder Grandfather Pancreatic cancer Other Heart disease Social History household members: none current occupational status: employed and student current occupation: [employer], [employer] Smoking Status: Never smoker alcohol intake: current alcohol intake frequency: a few times a month substance use type: does not use what type of physical activity do you participate in: walking and yoga frequency: 3-4 times per week seatbelt use: always do you feel safe at home: Yes additional social history: single HPI IUD removal Details: ESTELLA VEGAS is a 22 year old who presents for removal of paragard IUD due to pain and cramping since insertion. Would like to restart oral contraceptives but is seeing Dr Friend for fatty liver and full evaluation is not complete. History 0 Elective abortions Hx Para Spontaneous abortions Hx # Term Pregnancies Ectopic pregnancies Hx # Pregnancies Multiple births # of living children ROS Const Constitutional: Reports system reviewed and no additional complaints, except as documented Eyes Eyes: Reports system reviewed and no additional complaints, except as documented GI GI: Denies abdominal pain or change in bowel habits : Reports as per HPI Exam Const General: cooperative and no acute distress Orientation: oriented x3 General: bladder normal to palpation External Female Exam: normal external appearance and normal appearance of the urethra Urethra: normal appearance of the urethra Speculum Exam - Vagina: normal appearance of the vagina, normal vaginal discharge, no lesions and nontender Speculum Exam - Cervix: normal appearance of the cervix and other (smooth, nonfriable) Bimanual Exam- Vagina Uterus: normal bimanual exam, uterine size normal, bladder normal to palpation, uterine shape normal, uterine mobility normal and non-tender Bimanual Exam- Adnexa, other: normal adnexae, no masses and non-tender Office Procedures IUD Removal IUD Removal Details: Sign out documentation: Completed Procedure: Speculum placed in vagina, IUD string visualized and grasped with ring forceps. IUD easily removed in its entirety and patient tolerated well. Coding Level of Care Code Attention Civil Preparedness Training Officer Diagnoses Encounter for IUD removal Z30.432 Assessment and Plan Assessment and Plan (1) Encounter for IUD removal: Orders: Orders IUD Removal Today Z30.432 - Encounter for removal of intrauterine contraceptive device Medications: New norethindrone (contraceptive) (Myra) start day 1 of menstrual cycle 0.35 mg PO QDAY 84 tabs 4RF Plan IUD easily removed. Discussed use, benefits, risks and side effects of progesterone only OCP, start today and condoms X 2 weeks RTO prn, annual exam 11/11/22 1126 <Electronically signed by Criss Marie NP RECREATION AIDE-C> Date Criss Marie NP RECREATION AIDE-C Cosigner Signature: Date (if applicable) CC: Sofiya Del Castillo DO Work Phone: Start: 10-31-2022 End: 10-31-2022 Gastroenterology Visit Report Procedure Note: See Note; NOTES: [facility] [address] [place] [address] OFFICE VISIT Date of Service: 10/31/22 MR#: [id number] Acct: [id number] Name: ESTELLA VEGAS Rep #: [id number] : 2000 Provider: Darío Jones DO Age/Sex: 22/F Location: [facility] Status: Signed Intake Intake Visit Reasons: Consult Allergies No Known Allergies Allergy (Unverified 09/12/22 15:08) Medications colestipol 1 gram tablet 1 g PO ONCE 06/29/21 [History Confirmed 05/08/22] escitalopram oxalate 5 mg tablet (Lexapro) 5 mg PO DAILY 06/29/21 [History Confirmed 09/12/22] copper 380 square mm intrauterine device (ParaGard T 380A) 1 device intrauterine ONCE 03/21/22 [History Confirmed 05/08/22] [facility] Medical History (Updated 10/31/22 @ 09:12 by Gege Huizar) Anxiety Bloody stool IBS (irritable bowel syndrome) Family History Mother Thyroid disorder Grandmother Thyroid disorder Grandfather Pancreatic cancer Other Heart disease Social History household members: none current occupational status: employed and student current occupation: [employer], [employer] Smoking Status: Never smoker alcohol intake: current alcohol intake frequency: a few times a month substance use type: does not use what type of physical activity do you participate in: walking and yoga frequency: 3-4 times per week seatbelt use: always do you feel safe at home: Yes additional social history: single HPI HPI Details: ESTELLA VEGAS, is a 22 F who presents to the office today for Initial consult. Estella established with this clinic 10.31.22 with referral from PCP. Loose stools with blood have been an issue since August consistently for two weeks and intermittently since then without abdominal pain. Previously saw GI who diagnosed IBS early last year for chronic diarrhea and was started on colestipol QD which was helpful and continues with this. No colonoscopy performed. History of heartburn and has since changed her diet and with this change she does not have difficulty and no medication required. PMH anxiety which she feels is overall well controlled. FH great grandmother colon cancer CT abd/pel 09.23.22 noting hepatic steatosis; moderate fecal material; left ovarian cyst. US RUQ and elastography 10.16.22 hepatic measurement 17.9cm with fatty infiltration and stiffness 7.1 kPa F1/2. PCP started Vitamin E 800IU and recommended weight loss. ROS Const Constitutional: Positive for other (6 system ROS completed with pertinent findings in HPI otherwise normal.) Exam Const General: cooperative, healthy appearing, comfortable and no acute distress Nutritional Appearance: average body habitus and well nourished Orientation: alert, awake and oriented x3 HENMT Head: normal to inspection Ears: hearing grossly normal bilaterally and external ears normal Nose: external nose normal and no nasal discharge Eyes General: appearance normal, both eyes and all related structures Neck Neck: normal visual inspection Chest Chest palpation inspection: normal inspection of the chest Resp Effort Inspection: normal respiratory effort, able to speak in complete sentences and symmetric chest movement Cardio Rate: regular rate Pulses: radial pulses present Skin General: no rashes or lesions noted Neuro General: patient alert, patient awake, patient oriented x3 and gait normal Cognition: normal cognition Speech: speech normal Gait: normal gait Motor: muscle tone normal throughout Sensory Exam: no sensory deficits noted Extrem General: normal to inspection Psych Appearance: grossly normal Mental Status: mental status grossly normal Mood: congruent mood Affect: normal affect Speech and Movement: speech and movement normal Attitude: cooperative Thought Process: normal Thought Content: normal Judgment: judgment good Quality Reporting Tobacco Screening ([facility] 138) Smoking Status: Never smoker Assessment and Plan Assessment and Plan (1) Fatty liver: Status: Chronic Plan: Nonalcoholic fatty liver disease. Alcohol liver disease with subsequen On CT scan. She had a FibroScan fibrosis score 7.9. She had an ultrasound that displayed a liver size of 17.9 she only drinks alcohol once a week. Triglyceride checked approximately 5 years ago with normal. She has not. She has not been checked for diabetes. She does not have any family disease. She has no autoimmune disease in the family. She does not know if she has been checked for hepatitis C as she has no risk factors for chronic viral hepatitis. She has not received any blood transfusions. I recommend that she stop vitamin E at this time. We will repeat her FibroScan in approximately 6 months we discussed in detail, weight loss strategies and the natural history of nonalcoholic fatty liver disease. We will also get biochemical work-up to see if she has any underlying other disease process that would contribute to inflammation in the liver. (2) Diarrhea: Status: Chronic Plan: She is not having much diarrhea at this time. She had an IgA level and tissue transglutaminase checked about a year and a half ago. Her IgA level was low and it was a IgA based tissue transglutaminase test. She may need to be tested with HLA testing, antiendomysial antibody testing and tissue transglutaminase testing be IgG levels which were normal previous exam. (3) GERD (gastroesophageal reflux disease): Status: Chronic Plan: She is not having any problems or gastroesophageal reflux at this time. Orders: Orders HIV - [facility] Today K76.0 - Fatty (change of) liver, not elsewhere classified, R19.7 - Diarrhea, unspecified Comprehensive Metabolic Profil Today K76.0 - Fatty (change of) liver, not elsewhere classified, R19.7 - Diarrhea, unspecified CRP Today K76.0 - Fatty (change of) liver, not elsewhere classified, R19.7 - Diarrhea, unspecified Ferritin Today K76.0 - Fatty (change of) liver, not elsewhere classified, R19.7 - Diarrhea, unspecified LDH Today K76.0 - Fatty (change of) liver, not elsewhere classified, R19.7 - Diarrhea, unspecified Hemoglobin A1c Today K76.0 - Fatty (change of) liver, not elsewhere classified, R19.7 - Diarrhea, unspecified CBC W/Diff, Automated Today K76.0 - Fatty (change of) liver, not elsewhere classified, R19.7 - Diarrhea, unspecified Erythrocyte Sed Rate Today K76.0 - Fatty (change of) liver, not elsewhere classified, R19.7 - Diarrhea, unspecified Anti-Mitochondrial AB Today K76.0 - Fatty (change of) liver, not elsewhere classified, R19.7 - Diarrhea, unspecified ANGEL Comprehensive Panel Today K76.0 - Fatty (change of) liver, not elsewhere classified, R19.7 - Diarrhea, unspecified Calprotectin, Stool Today K76.0 - Fatty (change of) liver, not elsewhere classified, R19.7 - Diarrhea, unspecified Stool Lactoferrin/WBC Today K76.0 - Fatty (change of) liver, not elsewhere classified, R19.7 - Diarrhea, unspecified Hepatitis Panel Acute Today K76.0 - Fatty (change of) liver, not elsewhere classified, R19.7 - Diarrhea, unspecified Angiotensin Convert Enzyme Today K76.0 - Fatty (change of) liver, not elsewhere classified, R19.7 - Diarrhea, unspecified AFP, Tumor Marker Today K76.0 - Fatty (change of) liver, not elsewhere classified, R19.7 - Diarrhea, unspecified ANCA Today K76.0 - Fatty (change of) liver, not elsewhere classified, R19.7 - Diarrhea, unspecified Anti-Smooth Muscle ABS Today K76.0 - Fatty (change of) liver, not elsewhere classified, R19.7 - Diarrhea, unspecified Celiac Disease Profile Today K76.0 - Fatty (change of) liver, not elsewhere classified, R19.7 - Diarrhea, unspecified Ceruloplasmin Today K76.0 - Fatty (change of) liver, not elsewhere classified, R19.7 - Diarrhea, unspecified Copper, Serum or Plasma Today K76.0 - Fatty (change of) liver, not elsewhere classified, R19.7 - Diarrhea, unspecified Immunoglobulins G/A/M/E Today K76.0 - Fatty (change of) liver, not elsewhere classified, R19.7 - Diarrhea, unspecified Haptoglobin Today K76.0 - Fatty (change of) liver, not elsewhere classified, R19.7 - Diarrhea, unspecified SRIKANTH + Protein Elect, Serum Today K76.0 - Fatty (change of) liver, not elsewhere classified, R19.7 - Diarrhea, unspecified Ammonia Today K76.0 - Fatty (change of) liver, not elsewhere classified, R19.7 - Diarrhea, unspecified OVA+PARA w/Giardia EIA [id number] Today R19.7 - Diarrhea, unspecified CDIFF (PCR) Today R19.7 - Diarrhea, unspecified ENTERIC PATHOGEN PANEL STOOL Today K58.9 - Irritable bowel syndrome without diarrhea, R19.7 - Diarrhea, unspecified Pancreatic Elastase, Fecal Today R19.7 - Diarrhea, unspecified Coding Level of Care Code Off vis,new,level 3 Diagnoses Fatty liver K76.0 Diarrhea R19.7 GERD (gastroesophageal reflux disease) K21.9 10/31/22 0941 <Electronically signed by Darío Jones DO> Date Darío Jones DO Cosigner Signature: Date (if applicable) CC: Sofiya Del Castillo DO Work Phone: Start: 10-16-2022 End: 10-21-2022 Elastography Parenchyma/Organ Procedure Note: See Note; NOTES: [facility] Imaging Services [address] [place] [address] Elastography Parenchyma/Organ MR#: [id number] Acct: [id number] Name: ESTELLA VEGAS Rep #: [id number] : 2000 F 22 From: Nishant vázquez MD PCP: Dr[facility] Sofiya Del Castillo, [facility]: Elastography Parenchyma/Organ Date of Exam: Exam# [id number] Ordering Dr: Sofiya Del Castillo DO STUDY: ABDOMINAL ULTRASOUND - ELASTOGRAPHY REASON FOR VISIT: Female, 22 years old. Fatty infiltration of the liver. TECHNIQUE: Liver stiffness measurements were obtained on a [employer] RS 85 ultrasound machine using a CA 1-7 probe following the U guidelines. 3 measurements were obtained using a 2-D-SWE method. TheIQR/M was 19% suggesting a quality data set. TECHNICAL QUALITY: Adequate. COMPARISON: Comparison is made with prior examination done earlier today. FINDINGS: Liver: Fatty infiltration of the liver. Median liver stiffness measured 7.1 kPa. US/Elastography Parenchyma/Organ IMPRESSION: Liver stiffness measures 7.1 kPa compatible with F2-F3 (Mild to moderate liver fibrosis) Metavir score. Electronically Signed: Nishant Livingston MD at 9:12 EST , CC: Dr. Sofiya Del Castillo DO Male Impersonator: Signed Sofiya Del Castillo DO Work Phone: Start: 10-16-2022 End: 10-21-2022 Abdomen Limited Procedure Note: See Note; NOTES: [facility] Imaging Services [address] [place] [id number] Abdomen Limited MR#: [id number] Acct: [id number] Name: ESTELLA VEGAS Rep #: [id number] : 2000 F 22 From: Nishant vázquez MD PCP: Dr. Sofiya Del Castillo DO Status: DEP CLI Study: Abdomen Limited Date of Exam: 10/16/22 Exam# [id number] Ordering Dr: Sofiya Del Castillo DO STUDY: ABDOMINAL ULTRASOUND - RIGHT UPPER QUADRANT REASON FOR VISIT: Female, 22 years old . Fatty infiltration of the liver. TECHNIQUE: Ultrasound evaluation of the right upper quadrant was performed with real-time and static linares-scale imaging. TECHNICAL QUALITY: Adequate. COMPARISON: None. FINDINGS: Liver: The liver is enlarged and measures 17.9 cm. There is increased echogenicity consistent with fatty infiltration. The bile ducts are within normal limits. There is hepatic color flow. The direction of portal flow is hepatopetal. There is no demonstrated mass lesion. Gallbladder: Normal distended gallbladder. The gallbladder wall measures 2.7 mm. There is a negative sonographic Cruz''s sign. There is no pericholecystic fluid. There are no gallstones. Common Bile Duct (C.B.D.): The common bile duct measures 3.1 mm. Pancreas: Normal size of the head, body and tail of the pancreas. There is normal echogenicity of the pancreas. There is no demonstrated pancreatic mass or cyst. Right Kidney: Normal size of the right kidney. The right kidney measures 11.7 cm x 4.9 cm x 4.7 cm. Normal renal cortex. The right cortex measures 1.4 cm. There is no demonstrated renal mass or cyst. There is no right hydronephrosis. US/Abdomen Limited IMPRESSION: Hepatomegaly and diffuse fatty infiltration of the liver. Electronically Signed: Nishant Livingston MD at 9:10 [facility] , CC: Dr. Sofiya Del Castillo DO Male Impersonator: Signed Sofiya Del Castillo DO Work Phone: Start: 09-23-2022 End: 09-23-2022 Abdomen/Pelvis WITH Contrast Procedure Note: See Note; NOTES: [facility] Imaging Services [address] [place] [address] Abdomen/Pelvis WITH Contrast MR#: [id number] Acct: [id number] Name: ESTELLA VEGAS Rep #: [id number] : 2000 F 22 From: Nishant vázquez MD PCP: Dr. Sofiya Del Castillo, Status: REG CLI Study: Abdomen/Pelvis WITH Contrast Date of Exam: Exam# [id number] Ordering Dr: Sofiya Del Castillo DO STUDY: CT ABDOMEN AND PELVIS WITH CONTRAST REASON FOR EXAM: Female, 22 years old. K92.1 -- blood in the stool. RADIATION DOSAGE (If Supplied By Facility): CTDIvol = ( 22.9 ) mGy, DLP = ( 1233.11 ) mGycm TECHNIQUE: Transaxial images were obtained from the dome of the diaphragm to the symphysis pubis with oral contrast. Oral and amp; IV Readi-CAT and amp; 100mL Isovue-300 was administered. Sagittal and coronal images were reconstructed. Individualized dose optimization techniques were used for this CT. COMPARISON: None. FINDINGS: The visualized lung bases are unremarkable. The visualized portions of the heart are within normal limits. There is decreased attenuation of the liver consistent with steatosis. Normal gallbladder and extrahepatic biliary system. Normal spleen. Normal pancreas. Normal bilateral adrenal glands. Normal right kidney. Normal left kidney. Normal visualized stomach. Normal small intestine. Moderate amount of fecal material seen in the colon. The appendix is visualized and appears normal. Normal abdominal aorta. Normal inferior vena cava. Normal retroperitoneum. Normal urinary bladder. IUD is seen within the uterus. There is a 2.8 cm x 1.5 cm cyst in the left ovary. Follicles are seen in the right ovary. Normal abdominal wall. Normal osseous structures. CT/Abdomen/Pelvis WITH Contrast IMPRESSION: Diffuse fatty infiltration of the liver. Electronically Signed: Nishant Livingston MD at 14:32 EDT Reading Location ID and State: [address] [place] [address] , Service support , CC: Dr. Sofiya Del Castillo DO Male Impersonator: Signed Sofiya Del Castillo DO Work Phone: Start: 05-08-2022 End: 05-08-2022 [facility] Office Visit Report Procedure Note: See Note; NOTES: [facility] [address] [place] [address] OFFICE VISIT Date of Service: 05/08/22 MR#: [id number] Acct: [id number] Name: ESTELLA VEGAS Rep #: [id number] : 2000 Provider: PAWAN kay Age/Sex: 21/F Location: [facility] [place] Status: Signed Intake Vital Signs 05/08/22 14:49 Height 5 ft 6 in Weight: 213 lb 4 oz BMI 34.4 BP 110/68 Intake Visit Reasons: IUD CHECK Allergies No Known Allergies Allergy (Unverified 05/08/22 14:49) Medications colestipol 1 gram tablet 1 g PO ONCE 06/29/21 [History Confirmed 05/08/22] escitalopram oxalate 5 mg tablet (Lexapro) 5 mg PO DAILY 06/29/21 [History Confirmed 05/08/22] copper 380 square mm intrauterine device (ParaGard T 380A) 1 device intrauterine ONCE 03/21/22 [History Confirmed 05/08/22] Is last menstrual period known: Yes Last Menstral Period: 04/21/22 [facility] Medical History GERD (gastroesophageal reflux disease) IBS (irritable bowel syndrome) Family History Mother Thyroid disorder Grandmother Thyroid disorder Grandfather Pancreatic cancer Other Heart disease Social History household members: none current occupational status: employed and student current occupation: [employer], [employer] Smoking Status: Never smoker alcohol intake: current alcohol intake frequency: a few times a month substance use type: does not use what type of physical activity do you participate in: walking and yoga frequency: 3-4 times per week seatbelt use: always do you feel safe at home: Yes additional social history: single HPI IUD CHECK Details: ESTELLA VEGAS is a 21 year old who presents for IUD check. Had paragard IUD placed 03/21/22. States first menses was more painful but no irregular bleeding. Denies other concerns Female Reproductive History Last Menstral Period: 04/21/22 Pregancy History 0 Elective abortions Hx Para Spontaneous abortions Hx # Term Pregnancies Ectopic pregnancies Hx # Pregnancies Multiple births # of living children ROS Const Constitutional: Reports system reviewed and no additional complaints, except as documented Eyes Eyes: Reports system reviewed and no additional complaints, except as documented GI GI: Denies abdominal pain or change in bowel habits : Reports as per HPI Exam Const General: cooperative and no acute distress Nutritional Appearance: well nourished General: bladder normal to palpation External Female Exam: normal external appearance and normal appearance of the urethra Urethra: normal appearance of the urethra Speculum Exam - Vagina: normal appearance of the vagina, normal vaginal discharge, no lesions and nontender Speculum Exam - Cervix: normal appearance of the cervix (strings at os) and other (smooth, nonfriable) Bimanual Exam- Vagina Uterus: normal bimanual exam, uterine size normal, bladder normal to palpation, uterine shape normal, uterine mobility normal and non-tender Bimanual Exam- Adnexa, other: normal adnexae, no masses and non-tender Coding Level of Care Code Off vis,est,level 3 Diagnoses IUD check up Z30.431 Assessment and Plan Assessment and Plan (1) IUD check up: Plan Monitor menses and notify if cramping persists although more common after initial insertion RTO prn 05/08/22 1507 <Electronically signed by Criss Marie NP RECREATION AIDE-C> Date Criss Marie NP RECREATION AIDE-C Cosigner Signature: Date (if applicable) CC: Sofiya Del Castillo DO Work Phone: Start: 03-21-2022 End: 03-21-2022 C[facility]icker Office Visit Report Comments: See Note; NOTES: [facility] [address] [place] [address] OFFICE VISIT Date of Service: 03/21/22 MR#: [id number] Acct: [id number] Name: ESTELLA VEGAS Rep #: [id number] : 2000 Provider: PAWAN kay Age/Sex: 21/F Location: [facility] [place] Status: Signed Intake Vital Signs 03/21/22 10:02 Height 5 ft 6 in Weight: 210 lb BMI 33.9 BP 136/88 H Intake Visit Reasons: IUD INSERTION Allergies No Known Allergies Allergy (Unverified 03/21/22 10:02) Medications colestipol 1 gram tablet 1 g PO ONCE 06/29/21 [History Confirmed 03/21/22] escitalopram oxalate 5 mg tablet 5 mg PO DAILY 06/29/21 [History Confirmed 03/21/22] copper 380 square mm intrauterine device 1 device INTRAUTERINE ONCE 03/21/22 [History Confirmed 03/21/22] Is last menstrual period known: Yes Last Menstral Period: 03/21/22 PFSH PFSH Medical History GERD (gastroesophageal reflux disease) IBS (irritable bowel syndrome) Family History Mother Thyroid disorder Grandmother Thyroid disorder Grandfather Pancreatic cancer Other Heart disease Social History household members: none current occupational status: employed and student current occupation: [employer], [employer] Smoking Status: Never smoker alcohol intake: current alcohol intake frequency: a few times a month substance use type: does not use what type of physical activity do you participate in: walking and yoga frequency: 3-4 times per week seatbelt use: always do you feel safe at home: Yes additional social history: single Pregancy History 0 Elective abortions Hx Para Spontaneous abortions Hx # Term Pregnancies Ectopic pregnancies Hx # Pregnancies Multiple births # of living children HPI IUD INSERTION Details: ESTELLA VEGAS is a 21 year old who presents for paragard insertion Female Reproductive History Last Menstral Period: 03/21/22 ROS Const Constitutional: Reports system reviewed and no additional complaints, except as documented Eyes Eyes: Reports system reviewed and no additional complaints, except as documented GI GI: Denies abdominal pain or change in bowel habits : Reports as per HPI Exam Const General: cooperative and no acute distress Nutritional Appearance: well nourished Orientation: oriented x3 General: bladder normal to palpation External Female Exam: normal external appearance and normal appearance of the urethra Urethra: normal appearance of the urethra Speculum Exam - Vagina: normal appearance of the vagina, normal vaginal discharge, no lesions and nontender Speculum Exam - Cervix: normal appearance of the cervix and other (smooth, nonfriable) Bimanual Exam- Vagina Uterus: normal bimanual exam, uterine size normal, bladder normal to palpation, uterine shape normal, uterine mobility normal and non-tender Bimanual Exam- Adnexa, other: normal adnexae, no masses and non-tender Office Procedures IUD Insertion IUD Details: Sign in Communication: Completed Sign out documentation: Completed The uterus sounded to [] cm. After prepping the cervix with betadine and using sterile technique, the cervix was grasped with a single tooth tenaculum and the IUD was inserted without difficulty and the string was cut to 3cm from the external os of the cervix. All instruments were removed from the vagina and excellent hemostasis was noted. Procedure Summary: patient tolerated the procedure well without complication. IUD Insertion IUD GC/Chlamydia:: done Test: Yes Negative Consent Signed: Yes Time out checklist: patient, procedure, site marked/identified, positioning of patient, supplies available, allergies confirmed and team agrees on procedure IUD: Yes Copper Paragard Time out time: 10:19 Details: Sign in Communication: Completed Sign out documentation: Completed The uterus sounded to 7 cm. After prepping the cervix with betadine and using sterile technique, the cervix was grasped with a single tooth tenaculum and the IUD was inserted without difficulty and the string was cut to 3cm from the external os of the cervix. All instruments were removed from the vagina and excellent hemostasis was noted. Procedure Summary: patient tolerated the procedure well without complication. Office Meds Christoph T 380A Performing Provider: PAWAN España NP Administered by: PAWAN España NP on 03/21/22 10:19 Dose Route Admin Location Lot Number Expiration Date NDC Manufactu rer 1 device intrauterine [facility] [id number] 05/24/27 [address]-1 COOPERSURGICAL Results POC Urine Office , Urine Negative Last Edit by Alena Rodriguez on 03/21/22 10:14 Coding Level of Care Code No Charge Diagnoses Encounter for IUD insertion Z30.430 CPT Codes IUD (57461) Assessment and Plan Assessment and Plan (1) Encounter for IUD insertion: Status: Acute Comment: paragard 03/21/22 Orders: Orders: Copper Paragard Today Z30.430 Plan - Criss Marie NP, NP-C: Reviewed S S infection and condom use. Written information given. RTO 6 weeks Plan Details Other Orders: Orders: POC Urine Today N92.6 03/21/22 1123 <Electronically signed by Criss Marie NP RECREATION AIDE-C> Date Criss Marie NP, NP-Kendal Cosigner Signature: Date (if applicable) CC: Sofiya Del Castillo DO Work Phone: Start: 03-12-2022 End: 03-12-2022 [facility]one [facility]icker Office Visit Report Comments: See Note; NOTES: [facility] [address] [place] [address] OFFICE VISIT Date of Service: 03/12/22 MR#: [id number] Acct: [id number] Name: ESTELLA VEGAS Rep #: [id number] : 2000 Provider: PAWAN kay Age/Sex: 21/F Location: [facility] Status: Signed Intake Vital Signs 03/12/22 14:18 Height 5 ft 6 in Weight: 210 lb BMI 33.9 BP 110/70 Intake Visit Reasons: iud consult Allergies No Known Allergies Allergy (Unverified 03/12/22 14:15) Medications colestipol 1 gram tablet 1 g PO ONCE 06/29/21 [History Confirmed 03/12/22] escitalopram oxalate 5 mg tablet 5 mg PO DAILY 06/29/21 [History Confirmed 03/12/22] norgestimate 0.25 mg-ethinyl estradiol 35 mcg tablet 1 tab PO DAILY 06/29/21 [History Confirmed 03/12/22] Is last menstrual period known: Yes Last Menstral Period: 02/26/22 Nurse's Note: wants to discuss IUD, possibly paragard PFSH Medical History (Updated 03/12/22 @ 14:16 by Alena Rodriguez) GERD (gastroesophageal reflux disease) IBS (irritable bowel syndrome) Family History (Updated 03/12/22 @ 14:21 by Alena Rodriguez) Mother Thyroid disorder Grandmother Thyroid disorder Grandfather Pancreatic cancer Other Heart disease Social History (Updated 03/12/22 @ 14:18 by Alena Rodriguez) household members: none current occupational status: employed and student current occupation: [employer], [employer] Smoking Status: Never smoker alcohol intake: current alcohol intake frequency: a few times a month substance use type: does not use what type of physical activity do you participate in: walking and yoga frequency: 3-4 times per week seatbelt use: always do you feel safe at home: Yes additional social history: single HPI iud consult Details: ESTELLA VEGAS is a 21 year old who presents for new patient discussion of contraception options. She has been on Sprintec almost 7 years. Denies problems with sprintec but wonders if should give my body a break and also consider something she doesn't have to take daily. She is sexually active. Recent pap with STD evaluation at PCP and normal/negative. Female Reproductive History Last Menstral Period: 02/26/22 Pregancy History 0 Elective abortions Hx Para Spontaneous abortions Hx # Term Pregnancies Ectopic pregnancies Hx # Pregnancies Multiple births # of living children ROS Const Constitutional: Reports system reviewed and no additional complaints, except as documented Eyes Eyes: Reports system reviewed and no additional complaints, except as documented GI GI: Denies abdominal pain or change in bowel habits : Reports as per HPI Exam Const General: cooperative and no acute distress Orientation: oriented x3 HENMT Head: normal to inspection and normocephalic Eyes General: appearance normal, both eyes and all related structures Neck Neck: normal visual inspection Resp Effort Inspection: normal respiratory effort Neuro Cognition: normal cognition Speech: speech normal Psych Appearance: grossly normal Mood: congruent mood Affect: normal affect Speech and Movement: speech and movement normal Attitude: cooperative Judgment: judgment good Coding Level of Care Code Off vis,new,level 2 Diagnoses General counseling and advice for contraceptive management Z30.09 Assessment and Plan Assessment and Plan (1) General counseling and advice for contraceptive management: Plan - Criss Marie NP, RECREATION AIDE-C: ROR for recent annual exam and pap with PCP contraceptive options discussed:use, benefits, risks and side effects of each. Information on nuvaring, xulane, and IUDs given. She will review and call office when she is ready to change from oral contraceptives. 03/12/22 1443 <Electronically signed by Criss Marie NP RECREATION AIDE-C> Date Criss Marie NP RECREATION AIDE-C Cosigner Signature: Date (if applicable) CC: Sofiya Del Castillo DO Work Phone: Start: 07-12-2021 End: 07-12-2021 Urgent Care Visit Report Comments: See Note; NOTES: [place] [id number] OFFICE VISIT Date of Service: 07/12/21 MR#: [id number] Acct: [id number] Name: ESTELLA VEGAS Rep #: [id number] : 2000 Provider: BENIGNO woodard Age/Sex: 21/F Location: [facility] Status: Signed Intake Vital Signs 07/12/21 08:07 BP 104/78 Blood Pressure Location Lt brachial Position Sitting Respiration 16 Pulse 120 H Pulse Source Monitor Temp 97.5 F L Temp Source Temporal Pulse Oximetry (%) 99 Oxygen Delivery Method room air Intake Visit Reasons: coivd - exposure Allergies No Known Allergies Allergy (Unverified 07/12/21 08:07) Medications colestipol 1 gram tablet 1 g PO ONCE 06/29/21 [History Confirmed 07/12/21] escitalopram oxalate 5 mg tablet 5 mg PO DAILY 06/29/21 [History Confirmed 07/12/21] norgestimate 0.25 mg-ethinyl estradiol 35 mcg tablet 1 tab PO DAILY 06/29/21 [History Confirmed 07/12/21] PFSH Medical History (Updated 07/12/21 @ 08:52 by BENIGNO Rose) Diarrhea Lab test negative for COVID-19 virus Family History Other Heart disease Thyroid disorder Social History Smoking Status: Never smoker HPI HPI Details: ESTELLA VEGAS, is a 21 F who presents to the office today for COVID-19 screening as patient was recently exposed to mom who was diagnosed with COVID-19. Asymptomatic. ROS Const Constitutional: Positive for other (As above) Exam Const General: cooperative, healthy appearing, comfortable and no acute distress Nutritional Appearance: average body habitus and well nourished Orientation: alert, awake and oriented x3 HENMT Head: normal to inspection Ears: hearing grossly normal bilaterally and external ears normal Nose: external nose normal and no nasal discharge Eyes General: appearance normal, both eyes and all related structures Neck Neck: normal visual inspection Chest Chest palpation inspection: normal inspection of the chest Resp Effort Inspection: normal respiratory effort, able to speak in complete sentences and symmetric chest movement Cardio Rate: regular rate Pulses: radial pulses present Skin General: no rashes or lesions noted Neuro General: patient alert, patient awake, patient oriented x3 and gait normal Cognition: normal cognition Speech: speech normal Gait: normal gait Motor: muscle tone normal throughout Sensory Exam: no sensory deficits noted Extrem General: normal to inspection Psych Appearance: grossly normal Mental Status: mental status grossly normal Mood: congruent mood Affect: normal affect Speech and Movement: speech and movement normal Attitude: cooperative Thought Process: normal Thought Content: normal Judgment: judgment good Results POC CLAIRE CoV-2 PCR POC LCAIRE CoV-2 PCR Not Detected Last Edit by Rubi Craig RN on 07/12/21 08:26 INFLUENZA A AND B Coding Level of Care Code Off vis,new,level 3 Diagnoses Lab test negative for COVID-19 virus Z20.822 Assessment and Plan Assessment and Plan (1) Lab test negative for COVID-19 virus: Status: Acute Orders: Orders: POC Rapid CLAIRE Cov-2 PCR Today Z20.822 Plan - BENIGNO Rose: Haydee COVID-19 and influenza A/B test all negative in office today. Copy of lab results given to patient at their request. Follow-up with the [facility] on an as-needed basis only. Patient states acknowledging understanding all the above. This note was generated with Openbuilds dictation software. It may contain incorrect words, spelling, and punctuation that were not noted in checking the note before signing. 07/12/21 0852 <Electronically signed by Linus PELAEZ> Date Linus PELAEZ Cosigner Signature: Date (if applicable) CC: Sofiya Magdalene DO Work Phone: Start: 06-29-2021 End: 06-29-2021 Urgent Care Visit Report Comments: See Note; NOTES: [facility] [address] [place] [id number] OFFICE VISIT Date of Service: 06/29/21 MR#: [id number] Acct: [id number] Name: ESTELLA VEGAS Rep #: [id number] : 2000 Provider: BENIGNO Huizar Age/Sex: 21/F Location: [facility] Status: Signed Intake Vital Signs 06/29/21 09:25 Height 5 ft 6.5 in Weight: 193 lb BMI 30.7 BP 104/76 Blood Pressure Location Lt brachial Position Sitting Respiration 14 Pulse 92 Pulse Source Monitor Temp 98.0 F Temp Source Temporal Pulse Oximetry (%) 98 Oxygen Delivery Method room air Intake Visit Reasons: EXPOSED/WANTS COVID TEST Allergies No Known Allergies Allergy (Unverified 06/29/21 09:26) Medications colestipol 1 gram tablet 1 g PO ONCE 06/29/21 [History Confirmed 06/29/21] escitalopram oxalate 5 mg tablet 5 mg PO DAILY 06/29/21 [History Confirmed 06/29/21] norgestimate 0.25 mg-ethinyl estradiol 35 mcg tablet 1 tab PO DAILY 06/29/21 [History Confirmed 06/29/21] PFSH Medical History (Updated 06/29/21 @ 09:27 by Rubi Craig, BHARATHI) Diarrhea Family History Other Heart disease Thyroid disorder Social History Smoking Status: Never smoker HPI HPI Details: ESTELLA VEGAS, is a 21 F who presents to the office today for request of a Covid test after exposure to her sister who tested positive for Covid this morning. Patient denies any symptoms including no fever, chills, sweats. No cough, shortness of breath or difficulty breathing. No other associated symptoms or alleviating/aggravating factors. ROS Const Constitutional: Positive for other (6 system ROS completed with pertinent findings in HPI otherwise normal.) Exam Const General: cooperative and healthy appearing [facility] Head: normocephalic and atraumatic Ears: hearing grossly normal bilaterally Nose: external nose normal Face and sinus: normal facial exam and face symmetric Mouth: oral mucosae normal Throat: posterior oropharynx normal Eyes General: appearance normal, both eyes and all related structures Resp Effort Inspection: normal respiratory effort Auscultation: Bilateral: Clear to Auscultation Cardio Palpation: normal PMI Rate: regular rate Rhythm: regular rhythm Skin General: no rashes or lesions noted Neuro General: patient alert and CN's II-XI intact bilaterally Psych Appearance: grossly normal Mental Status: mental status grossly normal Results POC CLAIRE CoV-2 PCR POC CLAIRE CoV-2 PCR Not Detected Last Edit by Rubi Craig RN on 06/29/21 09:45 NEGATIVE FOR INFLUENZA A AND B Coding Level of Care Code Off vis,new,level 3 Diagnoses Exposure to COVID-19 virus Z20.822 Assessment and Plan Assessment and Plan (1) Exposure to COVID-19 virus: Status: Acute Orders: Orders: POC Rapid CLAIRE Cov-2 PCR Today Z20.822 Plan - BENIGNO Michelle: Patient tested negative for Covid using rapid PCR testing in the office today. Patient advised that she still could develop symptoms and that she should monitor for those. Patient verbalized understanding and agreement with all the above. 06/29/21 1004 <Electronically signed by Roderick PELAEZ> Date Roderick PELAEZ Cosigner Signature: Date (if applicable) CC: Sofiya Del Castillo DO Work Phone: Plan of Treatment Date Care Activity Detail Author Start: 10-03-2022 Procedure Education Eprescribed prescriptions (G8553) [facility] Work Phone: Start: 10-03-2022 Provider Instructions for Treatment [facility] Work Phone: Start: 09-09-2022 Procedure Education Eprescribed prescriptions (G8553) [facility] Work Phone: Start: 09-09-2022 C-reactive protein C-REACTIVE PROTEIN (28240) [facility] Work Phone: Start: 10-17-2022 Sedimentation rate rbc non-automated Sed Rate Erythrocyte (83678) [facility] Work Phone: Start: 09-09-2022 Blood count complete automated CBC (Auto) (19468) [facility] Work Phone: Start: 12-31-2021 Cytp c/v auto thin lyr prepj scr mnl rescr phys Thin Prep Pap (60654) [facility] Work Phone: Payers Date Payer Category Payer Unknown [id number] 2000 Unknown [id number] Unknown Jake BC/BS Social History Date Type Detail Facility Caffeine Use Caffeine Use [facility] Work Phone: Clinical Notes Note Date & Type Note Facility [facility]; [facility] Work Phone: Instructions* Name Dates Details How to Access Health Informa tion Online using Patient Portal and Empress[employer] Apps Indication:Non-smoker Start:19-Jan-2021 Instruction Type:Patient Education Patient Instructions Indication:Non-smoker Start:19-Jan-2021 Instruction Type:Provider Instructions for Treatment Patient Instructions Indication:BMI 28.0-28.9,adult Start:28-Dec-2020 Instruction Type:Provider Instructions for Treatment How to Access Health Informa tion Online using Patient Portal and Z[employer] Apps Indication:BMI 28.0-28.9,adult Start:28-Dec-2020 Instruction Type:Patient Education How to access health informa tion online Indication:Non-smoker Start:23-Feb-2020 Instruction Type:Patient Education How to access health informa tion online - Detail Indication:Non-smoker Start:23-Feb-2020 Instruction Type:Patient Education Patient Instructions Indication:Non-smoker Start:23-Feb-2020 Instruction Type:Provider Instructions for Treatment How to access health informa tion online Indication:Non-smoker Start:23-Sep-2019 Instruction Type:Patient Education How to access health informa tion online - Detail Indication:Non-smoker Start:23-Sep-2019 Instruction Type:Patient Education Patient Instructions Indication:Non-smoker Start:23-Sep-2019 Instruction Type:Provider Instructions for Treatment How to access health informa tion online Indication:BMI 27.0-27.9,adult Start:30-Jul-2019 Instruction Type:Patient Education How to access health informa tion online - Detail Indication:BMI 27.0-27.9,adult Start:30-Jul-2019 Instruction Type:Patient Education Patient Instructions Indication:BMI 27.0-27.9,adult Start:30-Jul-2019 Instruction Type:Provider Instructions for Treatment How to access health informa tion online Indication:Non-smoker Start:19-Feb-2019 Instruction Type:Patient Education How to access health informa tion online - Detail Indication:Non-smoker Start:19-Feb-2019 Instruction Type:Patient Education Patient Instructions Indication:Non-smoker Start:19-Feb-2019 Instruction Type:Provider Instructions for Treatment [facility] Work Phone: Instructions* Name Dates Details How to Access Health Informa tion Online using Patient Portal and 3rd Libertarian Apps Indication:Non-smoker Start:19-Jan-2021 Instruction Type:Patient Education Patient Instructions Indication:Non-smoker Start:19-Jan-2021 Instruction Type:Provider Instructions for Treatment Patient Instructions Indication:BMI 28.0-28.9,adult Start:28-Dec-2020 Instruction Type:Provider Instructions for Treatment How to Access Health Informa tion Online using Patient Portal and [employer] Apps Indication:BMI 28.0-28.9,adult Start:28-Dec-2020 Instruction Type:Patient Education How to access health informa tion online Indication:Non-smoker Start:23-Feb-2020 Instruction Type:Patient Education How to access health informa tion online - Detail Indication:Non-smoker Start:23-Feb-2020 Instruction Type:Patient Education Patient Instructions Indication:Non-smoker Start:23-Feb-2020 Instruction Type:Provider Instructions for Treatment How to access health informa tion online Indication:Non-smoker Start:23-Sep-2019 Instruction Type:Patient Education How to access health informa tion online - Detail Indication:Non-smoker Start:23-Sep-2019 Instruction Type:Patient Education Patient Instructions Indication:Non-smoker Start:23-Sep-2019 Instruction Type:Provider Instructions for Treatment How to access health informa tion online Indication:BMI 27.0-27.9,adult Start:30-Jul-2019 Instruction Type:Patient Education How to access health informa tion online - Detail Indication:BMI 27.0-27.9,adult Start:30-Jul-2019 Instruction Type:Patient Education Patient Instructions Indication:BMI 27.0-27.9,adult Start:30-Jul-2019 Instruction Type:Provider Instructions for Treatment How to access health informa tion online Indication:Non-smoker Start:19-Feb-2019 Instruction Type:Patient Education How to access health informa tion online - Detail Indication:Non-smoker Start:19-Feb-2019 Instruction Type:Patient Education Patient Instructions Indication:Non-smoker Start:19-Feb-2019 Instruction Type:Provider Instructions for Treatment [facility] Work Phone: Instructions* Name Dates Details How to Access Health Informa tion Online using Patient Portal and 3rd Libertarian Apps Indication:Non-smoker Start:19-Jan-2021 Instruction Type:Patient Education Patient Instructions Indication:Non-smoker Start:19-Jan-2021 Instruction Type:Provider Instructions for Treatment Patient Instructions Indication:BMI 28.0-28.9,adult Start:28-Dec-2020 Instruction Type:Provider Instructions for Treatment How to Access Health Informa tion Online using Patient Portal and Emp[employer] Apps Indication:BMI 28.0-28.9,adult Start:28-Dec-2020 Instruction Type:Patient Education How to access health informa tion online Indication:Non-smoker Start:23-Feb-2020 Instruction Type:Patient Education How to access health informa tion online - Detail Indication:Non-smoker Start:23-Feb-2020 Instruction Type:Patient Education Patient Instructions Indication:Non-smoker Start:23-Feb-2020 Instruction Type:Provider Instructions for Treatment How to access health informa tion online Indication:Non-smoker Start:23-Sep-2019 Instruction Type:Patient Education How to access health informa tion online - Detail Indication:Non-smoker Start:23-Sep-2019 Instruction Type:Patient Education Patient Instructions Indication:Non-smoker Start:23-Sep-2019 Instruction Type:Provider Instructions for Treatment How to access health informa tion online Indication:BMI 27.0-27.9,adult Start:30-Jul-2019 Instruction Type:Patient Education How to access health informa tion online - Detail Indication:BMI 27.0-27.9,adult Start:30-Jul-2019 Instruction Type:Patient Education Patient Instructions Indication:BMI 27.0-27.9,adult Start:30-Jul-2019 Instruction Type:Provider Instructions for Treatment How to access health informa tion online Indication:Non-smoker Start:19-Feb-2019 Instruction Type:Patient Education How to access health informa tion online - Detail Indication:Non-smoker Start:19-Feb-2019 Instruction Type:Patient Education Patient Instructions Indication:Non-smoker Start:19-Feb-2019 Instruction Type:Provider Instructions for Treatment [facility] Work Phone: Instructions* Name Dates Details How to Access Health Informa tion Online using Patient Portal and 3rd Libertarian Apps Indication:Non-smoker Start:19-Jan-2021 Instruction Type:Patient Education Patient Instructions Indication:Non-smoker Start:19-Jan-2021 Instruction Type:Provider Instructions for Treatment Patient Instructions Indication:BMI 28.0-28.9,adult Start:28-Dec-2020 Instruction Type:Provider Instructions for Treatment How to Access Health Informa tion Online using Patient Portal and [employer] Apps Indication:BMI 28.0-28.9,adult Start:28-Dec-2020 Instruction Type:Patient Education How to access health informa tion online Indication:Non-smoker Start:23-Feb-2020 Instruction Type:Patient Education How to access health informa tion online - Detail Indication:Non-smoker Start:23-Feb-2020 Instruction Type:Patient Education Patient Instructions Indication:Non-smoker Start:23-Feb-2020 Instruction Type:Provider Instructions for Treatment How to access health informa tion online Indication:Non-smoker Start:23-Sep-2019 Instruction Type:Patient Education How to access health informa tion online - Detail Indication:Non-smoker Start:23-Sep-2019 Instruction Type:Patient Education Patient Instructions Indication:Non-smoker Start:23-Sep-2019 Instruction Type:Provider Instructions for Treatment How to access health informa tion online Indication:BMI 27.0-27.9,adult Start:30-Jul-2019 Instruction Type:Patient Education How to access health informa tion online - Detail Indication:BMI 27.0-27.9,adult Start:30-Jul-2019 Instruction Type:Patient Education Patient Instructions Indication:BMI 27.0-27.9,adult Start:30-Jul-2019 Instruction Type:Provider Instructions for Treatment How to access health informa tion online Indication:Non-smoker Start:19-Feb-2019 Instruction Type:Patient Education How to access health informa tion online - Detail Indication:Non-smoker Start:19-Feb-2019 Instruction Type:Patient Education Patient Instructions Indication:Non-smoker Start:19-Feb-2019 Instruction Type:Provider Instructions for Treatment [facility] Work Phone: Instructions* Name Dates Details How to Access Health Informa tion Online using Patient Portal and 3rd [employer] Apps Indication:Non-smoker Start:19-Jan-2021 Instruction Type:Patient Education Patient Instructions Indication:Non-smoker Start:19-Jan-2021 Instruction Type:Provider Instructions for Treatment Patient Instructions Indication:BMI 28.0-28.9,adult Start:28-Dec-2020 Instruction Type:Provider Instructions for Treatment How to Access Health Informa tion Online using Patient Portal and [employer] Apps Indication:BMI 28.0-28.9,adult Start:28-Dec-2020 Instruction Type:Patient Education How to access health informa tion online Indication:Non-smoker Start:23-Feb-2020 Instruction Type:Patient Education How to access health informa tion online - Detail Indication:Non-smoker Start:23-Feb-2020 Instruction Type:Patient Education Patient Instructions Indication:Non-smoker Start:23-Feb-2020 Instruction Type:Provider Instructions for Treatment How to access health informa tion online Indication:Non-smoker Start:23-Sep-2019 Instruction Type:Patient Education How to access health informa tion online - Detail Indication:Non-smoker Start:23-Sep-2019 Instruction Type:Patient Education Patient Instructions Indication:Non-smoker Start:23-Sep-2019 Instruction Type:Provider Instructions for Treatment How to access health informa tion online Indication:BMI 27.0-27.9,adult Start:30-Jul-2019 Instruction Type:Patient Education How to access health informa tion online - Detail Indication:BMI 27.0-27.9,adult Start:30-Jul-2019 Instruction Type:Patient Education Patient Instructions Indication:BMI 27.0-27.9,adult Start:30-Jul-2019 Instruction Type:Provider Instructions for Treatment How to access health informa tion online Indication:Non-smoker Start:19-Feb-2019 Instruction Type:Patient Education How to access health informa tion online - Detail Indication:Non-smoker Start:19-Feb-2019 Instruction Type:Patient Education Patient Instructions Indication:Non-smoker Start:19-Feb-2019 Instruction Type:Provider Instructions for Treatment [facility]; [facility] Work Phone: Instructions* Name Dates Details Patient Instructions Indication:BMI 33.0-33.9,adult Start:09-Sep-2022 Instruction Type:Provider Instructions for Treatment How to Access Health Informa tion Online using Patient Portal and [employer] Indication:BMI 33.0-33.9,adult Start:09-Sep-2022 Instruction Type:Patient Education How to Access Health Informa tion Online using Patient Portal and [employer] Indication:Non-smoker Start:19-Jan-2021 Instruction Type:Patient Education Patient Instructions Indication:Non-smoker Start:19-Jan-2021 Instruction Type:Provider Instructions for Treatment Patient Instructions Indication:BMI 28.0-28.9,adult Start:28-Dec-2020 Instruction Type:Provider Instructions for Treatment How to Access Health Informa tion Online using Patient Portal and [employer] Indication:BMI 28.0-28.9,adult Start:28-Dec-2020 Instruction Type:Patient Education How to access health informa tion online Indication:Non-smoker Start:23-Feb-2020 Instruction Type:Patient Education How to access health informa tion online - Detail Indication:Non-smoker Start:23-Feb-2020 Instruction Type:Patient Education Patient Instructions Indication:Non-smoker Start:23-Feb-2020 Instruction Type:Provider Instructions for Treatment How to access health informa tion online Indication:Non-smoker Start:23-Sep-2019 Instruction Type:Patient Education How to access health informa tion online - Detail Indication:Non-smoker Start:23-Sep-2019 Instruction Type:Patient Education Patient Instructions Indication:Non-smoker Start:23-Sep-2019 Instruction Type:Provider Instructions for Treatment How to access health informa tion online Indication:BMI 27.0-27.9,adult Start:30-Jul-2019 Instruction Type:Patient Education How to access health informa tion online - Detail Indication:BMI 27.0-27.9,adult Start:30-Jul-2019 Instruction Type:Patient Education Patient Instructions Indication:BMI 27.0-27.9,adult Start:30-Jul-2019 Instruction Type:Provider Instructions for Treatment How to access health informa tion online Indication:Non-smoker Start:19-Feb-2019 Instruction Type:Patient Education How to access health informa tion online - Detail Indication:Non-smoker Start:19-Feb-2019 Instruction Type:Patient Education Patient Instructions Indication:Non-smoker Start:19-Feb-2019 Instruction Type:Provider Instructions for Treatment [facility]; [facility] Work Phone: Instructions* Name Dates Details Patient Instructions Indication:BMI 33.0-33.9,adult Start:09-Sep-2022 Instruction Type:Provider Instructions for Treatment How to Access Health Informa tion Online using Patient Portal and [employer] Indication:BMI 33.0-33.9,adult Start:09-Sep-2022 Instruction Type:Patient Education How to Access Health Informa tion Online using Patient Portal and [employer] Indication:Non-smoker Start:19-Jan-2021 Instruction Type:Patient Education Patient Instructions Indication:Non-smoker Start:19-Jan-2021 Instruction Type:Provider Instructions for Treatment Patient Instructions Indication:BMI 28.0-28.9,adult Start:28-Dec-2020 Instruction Type:Provider Instructions for Treatment How to Access Health Informa tion Online using Patient Portal and [employer] Indication:BMI 28.0-28.9,adult Start:28-Dec-2020 Instruction Type:Patient Education How to access health informa tion online Indication:Non-smoker Start:23-Feb-2020 Instruction Type:Patient Education How to access health informa tion online - Detail Indication:Non-smoker Start:23-Feb-2020 Instruction Type:Patient Education Patient Instructions Indication:Non-smoker Start:23-Feb-2020 Instruction Type:Provider Instructions for Treatment How to access health informa tion online Indication:Non-smoker Start:23-Sep-2019 Instruction Type:Patient Education How to access health informa tion online - Detail Indication:Non-smoker Start:23-Sep-2019 Instruction Type:Patient Education Patient Instructions Indication:Non-smoker Start:23-Sep-2019 Instruction Type:Provider Instructions for Treatment How to access health informa tion online Indication:BMI 27.0-27.9,adult Start:30-Jul-2019 Instruction Type:Patient Education How to access health informa tion online - Detail Indication:BMI 27.0-27.9,adult Start:30-Jul-2019 Instruction Type:Patient Education Patient Instructions Indication:BMI 27.0-27.9,adult Start:30-Jul-2019 Instruction Type:Provider Instructions for Treatment How to access health informa tion online Indication:Non-smoker Start:19-Feb-2019 Instruction Type:Patient Education How to access health informa tion online - Detail Indication:Non-smoker Start:19-Feb-2019 Instruction Type:Patient Education Patient Instructions Indication:Non-smoker Start:19-Feb-2019 Instruction Type:Provider Instructions for Treatment [facility]; [facility] Work Phone: Instructions* Name Dates Details Patient Instructions Indication:BMI 33.0-33.9,adult Start:09-Sep-2022 Instruction Type:Provider Instructions for Treatment How to Access Health Informa tion Online using Patient Portal and [employer] Indication:BMI 33.0-33.9,adult Start:09-Sep-2022 Instruction Type:Patient Education How to Access Health Informa tion Online using Patient Portal and [employer] Indication:Non-smoker Start:19-Jan-2021 Instruction Type:Patient Education Patient Instructions Indication:Non-smoker Start:19-Jan-2021 Instruction Type:Provider Instructions for Treatment Patient Instructions Indication:BMI 28.0-28.9,adult Start:28-Dec-2020 Instruction Type:Provider Instructions for Treatment How to Access Health Informa tion Online using Patient Portal and [employer] Indication:BMI 28.0-28.9,adult Start:28-Dec-2020 Instruction Type:Patient Education How to access health informa tion online Indication:Non-smoker Start:23-Feb-2020 Instruction Type:Patient Education How to access health informa tion online - Detail Indication:Non-smoker Start:23-Feb-2020 Instruction Type:Patient Education Patient Instructions Indication:Non-smoker Start:23-Feb-2020 Instruction Type:Provider Instructions for Treatment How to access health informa tion online Indication:Non-smoker Start:23-Sep-2019 Instruction Type:Patient Education How to access health informa tion online - Detail Indication:Non-smoker Start:23-Sep-2019 Instruction Type:Patient Education Patient Instructions Indication:Non-smoker Start:23-Sep-2019 Instruction Type:Provider Instructions for Treatment How to access health informa tion online Indication:BMI 27.0-27.9,adult Start:30-Jul-2019 Instruction Type:Patient Education How to access health informa tion online - Detail Indication:BMI 27.0-27.9,adult Start:30-Jul-2019 Instruction Type:Patient Education Patient Instructions Indication:BMI 27.0-27.9,adult Start:30-Jul-2019 Instruction Type:Provider Instructions for Treatment How to access health informa tion online Indication:Non-smoker Start:19-Feb-2019 Instruction Type:Patient Education How to access health informa tion online - Detail Indication:Non-smoker Start:19-Feb-2019 Instruction Type:Patient Education Patient Instructions Indication:Non-smoker Start:19-Feb-2019 Instruction Type:Provider Instructions for Treatment [facility]; [facility] Work Phone: Instructions* Name Dates Details Patient Instructions Indication:BMI 33.0-33.9,adult Start:09-Sep-2022 Instruction Type:Provider Instructions for Treatment How to Access Health Informa tion Online using Patient Portal and [employer] Indication:BMI 33.0-33.9,adult Start:09-Sep-2022 Instruction Type:Patient Education How to Access Health Informa tion Online using Patient Portal and [employer] Indication:Non-smoker Start:19-Jan-2021 Instruction Type:Patient Education Patient Instructions Indication:Non-smoker Start:19-Jan-2021 Instruction Type:Provider Instructions for Treatment Patient Instructions Indication:BMI 28.0-28.9,adult Start:28-Dec-2020 Instruction Type:Provider Instructions for Treatment How to Access Health Informa tion Online using Patient Portal and [employer] Indication:BMI 28.0-28.9,adult Start:28-Dec-2020 Instruction Type:Patient Education How to access health informa tion online Indication:Non-smoker Start:23-Feb-2020 Instruction Type:Patient Education How to access health informa tion online - Detail Indication:Non-smoker Start:23-Feb-2020 Instruction Type:Patient Education Patient Instructions Indication:Non-smoker Start:23-Feb-2020 Instruction Type:Provider Instructions for Treatment How to access health informa tion online Indication:Non-smoker Start:23-Sep-2019 Instruction Type:Patient Education How to access health informa tion online - Detail Indication:Non-smoker Start:23-Sep-2019 Instruction Type:Patient Education Patient Instructions Indication:Non-smoker Start:23-Sep-2019 Instruction Type:Provider Instructions for Treatment How to access health informa tion online Indication:BMI 27.0-27.9,adult Start:30-Jul-2019 Instruction Type:Patient Education How to access health informa tion online - Detail Indication:BMI 27.0-27.9,adult Start:30-Jul-2019 Instruction Type:Patient Education Patient Instructions Indication:BMI 27.0-27.9,adult Start:30-Jul-2019 Instruction Type:Provider Instructions for Treatment How to access health informa tion online Indication:Non-smoker Start:19-Feb-2019 Instruction Type:Patient Education How to access health informa tion online - Detail Indication:Non-smoker Start:19-Feb-2019 Instruction Type:Patient Education Patient Instructions Indication:Non-smoker Start:19-Feb-2019 Instruction Type:Provider Instructions for Treatment [facility]; [facility] Work Phone: Instructions* Name Dates Details Patient Instructions Indication:Non-smoker Start:03-Oct-2022 Instruction Type:Provider Instructions for Treatment How to Access Health Informa tion Online using Patient Portal and [employer] Indication:Non-smoker Start:03-Oct-2022 Instruction Type:Patient Education Patient Instructions Indication:BMI 33.0-33.9,adult Start:09-Sep-2022 Instruction Type:Provider Instructions for Treatment How to Access Health Informa tion Online using Patient Portal and [employer] Indication:BMI 33.0-33.9,adult Start:09-Sep-2022 Instruction Type:Patient Education How to Access Health Informa tion Online using Patient Portal and [employer] Indication:Non-smoker Start:19-Jan-2021 Instruction Type:Patient Education Patient Instructions Indication:Non-smoker Start:19-Jan-2021 Instruction Type:Provider Instructions for Treatment Patient Instructions Indication:BMI 28.0-28.9,adult Start:28-Dec-2020 Instruction Type:Provider Instructions for Treatment How to Access Health Informa tion Online using Patient Portal and [employer] Indication:BMI 28.0-28.9,adult Start:28-Dec-2020 Instruction Type:Patient Education How to access health informa tion online Indication:Non-smoker Start:23-Feb-2020 Instruction Type:Patient Education How to access health informa tion online - Detail Indication:Non-smoker Start:23-Feb-2020 Instruction Type:Patient Education Patient Instructions Indication:Non-smoker Start:23-Feb-2020 Instruction Type:Provider Instructions for Treatment How to access health informa tion online Indication:Non-smoker Start:23-Sep-2019 Instruction Type:Patient Education How to access health informa tion online - Detail Indication:Non-smoker Start:23-Sep-2019 Instruction Type:Patient Education Patient Instructions Indication:Non-smoker Start:23-Sep-2019 Instruction Type:Provider Instructions for Treatment How to access health informa tion online Indication:BMI 27.0-27.9,adult Start:30-Jul-2019 Instruction Type:Patient Education How to access health informa tion online - Detail Indication:BMI 27.0-27.9,adult Start:30-Jul-2019 Instruction Type:Patient Education Patient Instructions Indication:BMI 27.0-27.9,adult Start:30-Jul-2019 Instruction Type:Provider Instructions for Treatment How to access health informa tion online Indication:Non-smoker Start:19-Feb-2019 Instruction Type:Patient Education How to access health informa tion online - Detail Indication:Non-smoker Start:19-Feb-2019 Instruction Type:Patient Education Patient Instructions Indication:Non-smoker Start:19-Feb-2019 Instruction Type:Provider Instructions for Treatment [facility]; [facility] Work Phone: Instructions* Name Dates Details Patient Instructions Indication:Non-smoker Start:03-Oct-2022 Instruction Type:Provider Instructions for Treatment How to Access Health Informa tion Online using Patient Portal and [employer] Indication:Non-smoker Start:03-Oct-2022 Instruction Type:Patient Education Patient Instructions Indication:BMI 33.0-33.9,adult Start:09-Sep-2022 Instruction Type:Provider Instructions for Treatment How to Access Health Informa tion Online using Patient Portal and [employer] Indication:BMI 33.0-33.9,adult Start:09-Sep-2022 Instruction Type:Patient Education How to Access Health Informa tion Online using Patient Portal and [employer] Indication:Non-smoker Start:19-Jan-2021 Instruction Type:Patient Education Patient Instructions Indication:Non-smoker Start:19-Jan-2021 Instruction Type:Provider Instructions for Treatment Patient Instructions Indication:BMI 28.0-28.9,adult Start:28-Dec-2020 Instruction Type:Provider Instructions for Treatment How to Access Health Informa tion Online using Patient Portal and [employer] Indication:BMI 28.0-28.9,adult Start:28-Dec-2020 Instruction Type:Patient Education How to access health informa tion online Indication:Non-smoker Start:23-Feb-2020 Instruction Type:Patient Education How to access health informa tion online - Detail Indication:Non-smoker Start:23-Feb-2020 Instruction Type:Patient Education Patient Instructions Indication:Non-smoker Start:23-Feb-2020 Instruction Type:Provider Instructions for Treatment How to access health informa tion online Indication:Non-smoker Start:23-Sep-2019 Instruction Type:Patient Education How to access health informa tion online - Detail Indication:Non-smoker Start:23-Sep-2019 Instruction Type:Patient Education Patient Instructions Indication:Non-smoker Start:23-Sep-2019 Instruction Type:Provider Instructions for Treatment How to access health informa tion online Indication:BMI 27.0-27.9,adult Start:30-Jul-2019 Instruction Type:Patient Education How to access health informa tion online - Detail Indication:BMI 27.0-27.9,adult Start:30-Jul-2019 Instruction Type:Patient Education Patient Instructions Indication:BMI 27.0-27.9,adult Start:30-Jul-2019 Instruction Type:Provider Instructions for Treatment How to access health informa tion online Indication:Non-smoker Start:19-Feb-2019 Instruction Type:Patient Education How to access health informa tion online - Detail Indication:Non-smoker Start:19-Feb-2019 Instruction Type:Patient Education Patient Instructions Indication:Non-smoker Start:19-Feb-2019 Instruction Type:Provider Instructions for Treatment [facility]; [facility] Work Phone: Instructions* Name Dates Details Patient Instructions Indication:Non-smoker Start:03-Oct-2022 Instruction Type:Provider Instructions for Treatment How to Access Health Informa tion Online using Patient Portal and [employer] Indication:Non-smoker Start:03-Oct-2022 Instruction Type:Patient Education Patient Instructions Indication:BMI 33.0-33.9,adult Start:09-Sep-2022 Instruction Type:Provider Instructions for Treatment How to Access Health Informa tion Online using Patient Portal and [employer] Indication:BMI 33.0-33.9,adult Start:09-Sep-2022 Instruction Type:Patient Education How to Access Health Informa tion Online using Patient Portal and [employer] Indication:Non-smoker Start:19-Jan-2021 Instruction Type:Patient Education Patient Instructions Indication:Non-smoker Start:19-Jan-2021 Instruction Type:Provider Instructions for Treatment Patient Instructions Indication:BMI 28.0-28.9,adult Start:28-Dec-2020 Instruction Type:Provider Instructions for Treatment How to Access Health Informa tion Online using Patient Portal and [employer] Indication:BMI 28.0-28.9,adult Start:28-Dec-2020 Instruction Type:Patient Education How to access health informa tion online Indication:Non-smoker Start:23-Feb-2020 Instruction Type:Patient Education How to access health informa tion online - Detail Indication:Non-smoker Start:23-Feb-2020 Instruction Type:Patient Education Patient Instructions Indication:Non-smoker Start:23-Feb-2020 Instruction Type:Provider Instructions for Treatment How to access health informa tion online Indication:Non-smoker Start:23-Sep-2019 Instruction Type:Patient Education How to access health informa tion online - Detail Indication:Non-smoker Start:23-Sep-2019 Instruction Type:Patient Education Patient Instructions Indication:Non-smoker Start:23-Sep-2019 Instruction Type:Provider Instructions for Treatment How to access health informa tion online Indication:BMI 27.0-27.9,adult Start:30-Jul-2019 Instruction Type:Patient Education How to access health informa tion online - Detail Indication:BMI 27.0-27.9,adult Start:30-Jul-2019 Instruction Type:Patient Education Patient Instructions Indication:BMI 27.0-27.9,adult Start:30-Jul-2019 Instruction Type:Provider Instructions for Treatment How to access health informa tion online Indication:Non-smoker Start:19-Feb-2019 Instruction Type:Patient Education How to access health informa tion online - Detail Indication:Non-smoker Start:19-Feb-2019 Instruction Type:Patient Education Patient Instructions Indication:Non-smoker Start:19-Feb-2019 Instruction Type:Provider Instructions for Treatment [facility]; [facility] Work Phone: Instructions* Name Dates Details Patient Instructions Indication:Non-smoker Start:03-Oct-2022 Instruction Type:Provider Instructions for Treatment How to Access Health Informa tion Online using Patient Portal and [employer] Indication:Non-smoker Start:03-Oct-2022 Instruction Type:Patient Education Patient Instructions Indication:BMI 33.0-33.9,adult Start:09-Sep-2022 Instruction Type:Provider Instructions for Treatment How to Access Health Informa tion Online using Patient Portal and [employer] Indication:BMI 33.0-33.9,adult Start:09-Sep-2022 Instruction Type:Patient Education How to Access Health Informa tion Online using Patient Portal and [employer] Indication:Non-smoker Start:19-Jan-2021 Instruction Type:Patient Education Patient Instructions Indication:Non-smoker Start:19-Jan-2021 Instruction Type:Provider Instructions for Treatment Patient Instructions Indication:BMI 28.0-28.9,adult Start:28-Dec-2020 Instruction Type:Provider Instructions for Treatment How to Access Health Informa tion Online using Patient Portal and [employer] Indication:BMI 28.0-28.9,adult Start:28-Dec-2020 Instruction Type:Patient Education How to access health informa tion online Indication:Non-smoker Start:23-Feb-2020 Instruction Type:Patient Education How to access health informa tion online - Detail Indication:Non-smoker Start:23-Feb-2020 Instruction Type:Patient Education Patient Instructions Indication:Non-smoker Start:23-Feb-2020 Instruction Type:Provider Instructions for Treatment How to access health informa tion online Indication:Non-smoker Start:23-Sep-2019 Instruction Type:Patient Education How to access health informa tion online - Detail Indication:Non-smoker Start:23-Sep-2019 Instruction Type:Patient Education Patient Instructions Indication:Non-smoker Start:23-Sep-2019 Instruction Type:Provider Instructions for Treatment How to access health informa tion online Indication:BMI 27.0-27.9,adult Start:30-Jul-2019 Instruction Type:Patient Education How to access health informa tion online - Detail Indication:BMI 27.0-27.9,adult Start:30-Jul-2019 Instruction Type:Patient Education Patient Instructions Indication:BMI 27.0-27.9,adult Start:30-Jul-2019 Instruction Type:Provider Instructions for Treatment How to access health informa tion online Indication:Non-smoker Start:19-Feb-2019 Instruction Type:Patient Education How to access health informa tion online - Detail Indication:Non-smoker Start:19-Feb-2019 Instruction Type:Patient Education Patient Instructions Indication:Non-smoker Start:19-Feb-2019 Instruction Type:Provider Instructions for Treatment [facility]; [facility] Work Phone: Instructions* Name Dates Details Patient Instructions Indication:Non-smoker Start:03-Oct-2022 Instruction Type:Provider Instructions for Treatment How to Access Health Informa tion Online using Patient Portal and [employer] Indication:Non-smoker Start:03-Oct-2022 Instruction Type:Patient Education Patient Instructions Indication:BMI 33.0-33.9,adult Start:09-Sep-2022 Instruction Type:Provider Instructions for Treatment How to Access Health Informa tion Online using Patient Portal and [employer] Indication:BMI 33.0-33.9,adult Start:09-Sep-2022 Instruction Type:Patient Education How to Access Health Informa tion Online using Patient Portal and [employer] Indication:Non-smoker Start:19-Jan-2021 Instruction Type:Patient Education Patient Instructions Indication:Non-smoker Start:19-Jan-2021 Instruction Type:Provider Instructions for Treatment Patient Instructions Indication:BMI 28.0-28.9,adult Start:28-Dec-2020 Instruction Type:Provider Instructions for Treatment How to Access Health Informa tion Online using Patient Portal and [employer] Indication:BMI 28.0-28.9,adult Start:28-Dec-2020 Instruction Type:Patient Education How to access health informa tion online Indication:Non-smoker Start:23-Feb-2020 Instruction Type:Patient Education How to access health informa tion online - Detail Indication:Non-smoker Start:23-Feb-2020 Instruction Type:Patient Education Patient Instructions Indication:Non-smoker Start:23-Feb-2020 Instruction Type:Provider Instructions for Treatment How to access health informa tion online Indication:Non-smoker Start:23-Sep-2019 Instruction Type:Patient Education How to access health informa tion online - Detail Indication:Non-smoker Start:23-Sep-2019 Instruction Type:Patient Education Patient Instructions Indication:Non-smoker Start:23-Sep-2019 Instruction Type:Provider Instructions for Treatment How to access health informa tion online Indication:BMI 27.0-27.9,adult Start:30-Jul-2019 Instruction Type:Patient Education How to access health informa tion online - Detail Indication:BMI 27.0-27.9,adult Start:30-Jul-2019 Instruction Type:Patient Education Patient Instructions Indication:BMI 27.0-27.9,adult Start:30-Jul-2019 Instruction Type:Provider Instructions for Treatment How to access health informa tion online Indication:Non-smoker Start:19-Feb-2019 Instruction Type:Patient Education How to access health informa tion online - Detail Indication:Non-smoker Start:19-Feb-2019 Instruction Type:Patient Education Patient Instructions Indication:Non-smoker Start:19-Feb-2019 Instruction Type:Provider Instructions for Treatment [facility]; [facility] Work Phone: Instructions* Name Dates Details Patient Instructions Indication:Non-smoker Start:03-Oct-2022 Instruction Type:Provider Instructions for Treatment How to Access Health Informa tion Online using Patient Portal and [employer] Indication:Non-smoker Start:03-Oct-2022 Instruction Type:Patient Education Patient Instructions Indication:BMI 33.0-33.9,adult Start:09-Sep-2022 Instruction Type:Provider Instructions for Treatment How to Access Health Informa tion Online using Patient Portal and [employer] Indication:BMI 33.0-33.9,adult Start:09-Sep-2022 Instruction Type:Patient Education How to Access Health Informa tion Online using Patient Portal and [employer] Indication:Non-smoker Start:19-Jan-2021 Instruction Type:Patient Education Patient Instructions Indication:Non-smoker Start:19-Jan-2021 Instruction Type:Provider Instructions for Treatment Patient Instructions Indication:BMI 28.0-28.9,adult Start:28-Dec-2020 Instruction Type:Provider Instructions for Treatment How to Access Health Informa tion Online using Patient Portal and [employer]rd [employer] Indication:BMI 28.0-28.9,adult Start:28-Dec-2020 Instruction Type:Patient Education How to access health informa tion online Indication:Non-smoker Start:23-Feb-2020 Instruction Type:Patient Education How to access health informa tion online - Detail Indication:Non-smoker Start:23-Feb-2020 Instruction Type:Patient Education Patient Instructions Indication:Non-smoker Start:23-Feb-2020 Instruction Type:Provider Instructions for Treatment How to access health informa tion online Indication:Non-smoker Start:23-Sep-2019 Instruction Type:Patient Education How to access health informa tion online - Detail Indication:Non-smoker Start:23-Sep-2019 Instruction Type:Patient Education Patient Instructions Indication:Non-smoker Start:23-Sep-2019 Instruction Type:Provider Instructions for Treatment How to access health informa tion online Indication:BMI 27.0-27.9,adult Start:30-Jul-2019 Instruction Type:Patient Education How to access health informa tion online - Detail Indication:BMI 27.0-27.9,adult Start:30-Jul-2019 Instruction Type:Patient Education Patient Instructions Indication:BMI 27.0-27.9,adult Start:30-Jul-2019 Instruction Type:Provider Instructions for Treatment How to access health informa tion online Indication:Non-smoker Start:19-Feb-2019 Instruction Type:Patient Education How to access health informa tion online - Detail Indication:Non-smoker Start:19-Feb-2019 Instruction Type:Patient Education Patient Instructions Indication:Non-smoker Start:19-Feb-2019 Instruction Type:Provider Instructions for Treatment [facility]; [facility] Work Phone: Summary Purpose Family History Unknown Family Member Name Dates Details Heart Disease Comments:Paternal Grandmothe r. Status:Active Thyroid problems Comments:Mother. Maternal Gr andmother. Status:Active Unknown Family Member Name Dates Details Heart Disease Comments:Paternal Grandmothe r. Status:Active Thyroid problems Comments:Mother. Maternal Gr andmother. Status:Active Unknown Family Member Name Dates Details Heart Disease Comments:Paternal Grandmothe r. Status:Active Thyroid problems Comments:Mother. Maternal Gr andmother. Status:Active Unknown Family Member Name Dates Details Heart Disease Comments:Paternal Grandmothe r. Status:Active Thyroid problems Comments:Mother. Maternal Gr andmother. Status:Active Unknown Family Member Name Dates Details Heart Disease Comments:Paternal Grandmothe r. Status:Active Thyroid problems Comments:Mother. Maternal Gr andmother. Status:Active Unknown Family Member Name Dates Details Heart Disease Comments:Paternal Grandmothe r. Status:Active Thyroid problems Comments:Mother. Maternal Gr andmother. Status:Active Unknown Family Member Name Dates Details Heart Disease Comments:Paternal Grandmothe r. Status:Active Thyroid problems Comments:Mother. Maternal Gr andmother. Status:Active Unknown Family Member Name Dates Details Heart Disease Comments:Paternal Grandmothe r. Status:Active Thyroid problems Comments:Mother. Maternal Gr andmother. Status:Active Unknown Family Member Name Dates Details Heart Disease Comments:Paternal Grandmothe r. Status:Active Thyroid problems Comments:Mother. Maternal Gr andmother. Status:Active Unknown Family Member Name Dates Details Heart Disease Comments:Paternal Grandmothe r. Status:Active Thyroid problems Comments:Mother. Maternal Gr andmother. Status:Active Unknown Family Member Name Dates Details Heart Disease Comments:Paternal Grandmothe r. Status:Active Thyroid problems Comments:Mother. Maternal Gr andmother. Status:Active Unknown Family Member Name Dates Details Heart Disease Comments:Paternal Grandmothe r. Status:Active Thyroid problems Comments:Mother. Maternal Gr andmother. Status:Active Unknown Family Member Name Dates Details Heart Disease Comments:Paternal Grandmothe r. Status:Active Thyroid problems Comments:Mother. Maternal Gr andmother. Status:Active Unknown Family Member Name Dates Details Heart Disease Comments:Paternal Grandmothe r. Status:Active Thyroid problems Comments:Mother. Maternal Gr andmother. Status:Active Unknown Family Member Name Dates Details Heart Disease Comments:Paternal Grandmothe r. Status:Active Thyroid problems Comments:Mother. Maternal Gr andmother. Status:Active Unknown Family Member Name Dates Details Heart Disease Comments:Paternal Grandmothe r. Status:Active Thyroid problems Comments:Mother. Maternal Gr andmother. Status:Active Unknown Family Member Name Dates Details Heart Disease Comments:Paternal Grandmothe r. Status:Active Thyroid problems Comments:Mother. Maternal Gr andmother. Status:Active Unknown Family Member Name Dates Details Heart Disease Comments:Paternal Grandmothe r. Status:Active Thyroid problems Comments:Mother. Maternal Gr andmother. Status:Active Unknown Family Member Name Dates Details Heart Disease Comments:Paternal Grandmothe r. Status:Active Thyroid problems Comments:Mother. Maternal Gr andmother. Status:Active Unknown Family Member Name Dates Details Heart Disease Comments:Paternal Grandmothe r. Status:Active Thyroid problems Comments:Mother. Maternal Gr andmother. Status:Active Unknown Family Member Name Dates Details Heart Disease Comments:Paternal Grandmothe r. Status:Active Thyroid problems Comments:Mother. Maternal Gr andmother. Status:Active Unknown Family Member Name Dates Details Heart Disease Comments:Paternal Grandmothe r. Status:Active Thyroid problems Comments:Mother. Maternal Gr andmother. Status:Active Unknown Family Member Name Dates Details Heart Disease Comments:Paternal Grandmothe r. Status:Active Thyroid problems Comments:Mother. Maternal Gr andmother. Status:Active Unknown Family Member Name Dates Details Heart Disease Comments:Paternal Grandmothe r. Status:Active Thyroid problems Comments:Mother. Maternal Gr andmother. Status:Active Advance Directives No Advanced Directives Records FoundNo Advanced Directives Records Found Instructions Name Dates Details How to access health informa tion online Indication:Non-smoker Start:23-Feb-2020 Instruction Type:Patient Education How to access health informa tion online - Detail Indication:Non-smoker Start:23-Feb-2020 Instruction Type:Patient Education Patient Instructions Indication:Non-smoker Start:23-Feb-2020 Instruction Type:Provider Instructions for Treatment How to access health informa tion online Indication:Non-smoker Start:23-Sep-2019 Instruction Type:Patient Education How to access health informa tion online - Detail Indication:Non-smoker Start:23-Sep-2019 Instruction Type:Patient Education Patient Instructions Indication:Non-smoker Start:23-Sep-2019 Instruction Type:Provider Instructions for Treatment How to access health informa tion online Indication:BMI 27.0-27.9,adult Start:30-Jul-2019 Instruction Type:Patient Education How to access health informa tion online - Detail Indication:BMI 27.0-27.9,adult Start:30-Jul-2019 Instruction Type:Patient Education Patient Instructions Indication:BMI 27.0-27.9,adult Start:30-Jul-2019 Instruction Type:Provider Instructions for Treatment How to access health informa tion online Indication:Non-smoker Start:19-Feb-2019 Instruction Type:Patient Education How to access health informa tion online - Detail Indication:Non-smoker Start:19-Feb-2019 Instruction Type:Patient Education Patient Instructions Indication:Non-smoker Start:19-Feb-2019 Instruction Type:Provider Instructions for Treatment Name Dates Details How to access health informa tion online Indication:BMI 27.0-27.9,adult Start:30-Jul-2019 Instruction Type:Patient Education How to access health informa tion online - Detail Indication:BMI 27.0-27.9,adult Start:30-Jul-2019 Instruction Type:Patient Education Patient Instructions Indication:BMI 27.0-27.9,adult Start:30-Jul-2019 Instruction Type:Provider Instructions for Treatment How to access health informa tion online Indication:Non-smoker Start:19-Feb-2019 Instruction Type:Patient Education How to access health informa tion online - Detail Indication:Non-smoker Start:19-Feb-2019 Instruction Type:Patient Education Patient Instructions Indication:Non-smoker Start:19-Feb-2019 Instruction Type:Provider Instructions for Treatment Name Dates Details Non-smoker : How to access h ealth information online Indication:Non-smoker Non-smoker : How to access h ealth information online - Detail Indication:Non-smoker Non-smoker : Patient Instruc tions Indication:Non-smoker Name Dates Details How to access health informa tion online Indication:Non-smoker Start:23-Feb-2020 Instruction Type:Patient Education How to access health informa tion online - Detail Indication:Non-smoker Start:23-Feb-2020 Instruction Type:Patient Education Patient Instructions Indication:Non-smoker Start:23-Feb-2020 Instruction Type:Provider Instructions for Treatment How to access health informa tion online Indication:Non-smoker Start:23-Sep-2019 Instruction Type:Patient Education How to access health informa tion online - Detail Indication:Non-smoker Start:23-Sep-2019 Instruction Type:Patient Education Patient Instructions Indication:Non-smoker Start:23-Sep-2019 Instruction Type:Provider Instructions for Treatment How to access health informa tion online Indication:BMI 27.0-27.9,adult Start:30-Jul-2019 Instruction Type:Patient Education How to access health informa tion online - Detail Indication:BMI 27.0-27.9,adult Start:30-Jul-2019 Instruction Type:Patient Education Patient Instructions Indication:BMI 27.0-27.9,adult Start:30-Jul-2019 Instruction Type:Provider Instructions for Treatment How to access health informa tion online Indication:Non-smoker Start:19-Feb-2019 Instruction Type:Patient Education How to access health informa tion online - Detail Indication:Non-smoker Start:19-Feb-2019 Instruction Type:Patient Education Patient Instructions Indication:Non-smoker Start:19-Feb-2019 Instruction Type:Provider Instructions for Treatment Name Dates Details How to access health informa tion online Indication:Non-smoker Start:23-Sep-2019 Instruction Type:Patient Education How to access health informa tion online - Detail Indication:Non-smoker Start:23-Sep-2019 Instruction Type:Patient Education Patient Instructions Indication:Non-smoker Start:23-Sep-2019 Instruction Type:Provider Instructions for Treatment How to access health informa tion online Indication:BMI 27.0-27.9,adult Start:30-Jul-2019 Instruction Type:Patient Education How to access health informa tion online - Detail Indication:BMI 27.0-27.9,adult Start:30-Jul-2019 Instruction Type:Patient Education Patient Instructions Indication:BMI 27.0-27.9,adult Start:30-Jul-2019 Instruction Type:Provider Instructions for Treatment How to access health informa tion online Indication:Non-smoker Start:19-Feb-2019 Instruction Type:Patient Education How to access health informa tion online - Detail Indication:Non-smoker Start:19-Feb-2019 Instruction Type:Patient Education Patient Instructions Indication:Non-smoker Start:19-Feb-2019 Instruction Type:Provider Instructions for Treatment Name Dates Details How to Access Health Informa tion Online using Patient Portal and [employer]rd [employer] Apps Indication:Non-smoker Start:19-Jan-2021 Instruction Type:Patient Education Patient Instructions Indication:Non-smoker Start:19-Jan-2021 Instruction Type:Provider Instructions for Treatment Patient Instructions Indication:BMI 28.0-28.9,adult Start:28-Dec-2020 Instruction Type:Provider Instructions for Treatment How to Access Health Informa tion Online using Patient Portal and [employer]rd [employer] Apps Indication:BMI 28.0-28.9,adult Start:28-Dec-2020 Instruction Type:Patient Education How to access health informa tion online Indication:Non-smoker Start:23-Feb-2020 Instruction Type:Patient Education How to access health informa tion online - Detail Indication:Non-smoker Start:23-Feb-2020 Instruction Type:Patient Education Patient Instructions Indication:Non-smoker Start:23-Feb-2020 Instruction Type:Provider Instructions for Treatment How to access health informa tion online Indication:Non-smoker Start:23-Sep-2019 Instruction Type:Patient Education How to access health informa tion online - Detail Indication:Non-smoker Start:23-Sep-2019 Instruction Type:Patient Education Patient Instructions Indication:Non-smoker Start:23-Sep-2019 Instruction Type:Provider Instructions for Treatment How to access health informa tion online Indication:BMI 27.0-27.9,adult Start:30-Jul-2019 Instruction Type:Patient Education How to access health informa tion online - Detail Indication:BMI 27.0-27.9,adult Start:30-Jul-2019 Instruction Type:Patient Education Patient Instructions Indication:BMI 27.0-27.9,adult Start:30-Jul-2019 Instruction Type:Provider Instructions for Treatment How to access health informa tion online Indication:Non-smoker Start:19-Feb-2019 Instruction Type:Patient Education How to access health informa tion online - Detail Indication:Non-smoker Start:19-Feb-2019 Instruction Type:Patient Education Patient Instructions Indication:Non-smoker Start:19-Feb-2019 Instruction Type:Provider Instructions for Treatment Name Dates Details Non-smoker : How to access h ealth information online Indication:Non-smoker Non-smoker : How to access h ealth information online - Detail Indication:Non-smoker Non-smoker : Patient Instruc tions Indication:Non-smoker Name Dates Details How to Access Health Informa tion Online using Patient Portal and [employer] Apps Indication:Non-smoker Start:19-Jan-2021 Instruction Type:Patient Education Patient Instructions Indication:Non-smoker Start:19-Jan-2021 Instruction Type:Provider Instructions for Treatment Patient Instructions Indication:BMI 28.0-28.9,adult Start:28-Dec-2020 Instruction Type:Provider Instructions for Treatment How to Access Health Informa tion Online using Patient Portal and [employer] Apps Indication:BMI 28.0-28.9,adult Start:28-Dec-2020 Instruction Type:Patient Education How to access health informa tion online Indication:Non-smoker Start:23-Feb-2020 Instruction Type:Patient Education How to access health informa tion online - Detail Indication:Non-smoker Start:23-Feb-2020 Instruction Type:Patient Education Patient Instructions Indication:Non-smoker Start:23-Feb-2020 Instruction Type:Provider Instructions for Treatment How to access health informa tion online Indication:Non-smoker Start:23-Sep-2019 Instruction Type:Patient Education How to access health informa tion online - Detail Indication:Non-smoker Start:23-Sep-2019 Instruction Type:Patient Education Patient Instructions Indication:Non-smoker Start:23-Sep-2019 Instruction Type:Provider Instructions for Treatment How to access health informa tion online Indication:BMI 27.0-27.9,adult Start:30-Jul-2019 Instruction Type:Patient Education How to access health informa tion online - Detail Indication:BMI 27.0-27.9,adult Start:30-Jul-2019 Instruction Type:Patient Education Patient Instructions Indication:BMI 27.0-27.9,adult Start:30-Jul-2019 Instruction Type:Provider Instructions for Treatment How to access health informa tion online Indication:Non-smoker Start:19-Feb-2019 Instruction Type:Patient Education How to access health informa tion online - Detail Indication:Non-smoker Start:19-Feb-2019 Instruction Type:Patient Education Patient Instructions Indication:Non-smoker Start:19-Feb-2019 Instruction Type:Provider Instructions for Treatment Additional Source Comments INFORMATION SOURCE (unrecogn ized section and content) DATE CREATED AUTHOR AUTHOR'S ORGANIZ ATION 09/27/2022 [facility] FOR RECORDS PERTAINING TO PATIENTS WHO ARE OR HAVE BEEN ENROLLED IN A CHEMICAL DEPENDENCY/SUBSTANCEABUSE PROGRAM, SOME INFORMATION MAY BE OMITTED. This clinical summary was aggregated from multiple sources. Caution should be exercised in using it in the provision of clinical care. This summary normalizes information from multiple sources, and as a consequence, information in this document may materially change the coding, format and clinical context of patient data. In addition, data may be omitted in some cases. CLINICAL DECISIONS SHOULD BE BASED ON THE PRIMARY CLINICAL RECORDS. [email or web address] provides no warranty or guarantee of the accuracy or completeness of information in this document.
[2023-12-16 11:08] LABS: Chlamydia By Nucleic Acid AMP Negative (Negative); Gonococcus By Nucleic Acid AMP Negative (Negative); Trich. Vag By Nucleic Acid AMP Negative (Negative)
[2023-12-16 11:30] LABS: HPV Reflexed? NOT INDICATED
== END | disposition home or self-care (01) ==
PROVIDERS: PCP Family Medicine; Visit Provider Family Medicine
DX: Z00.00 Encounter for general adult medical examination without abnormal findings (principal)
CPT/HCPCS: 87491; 87591; 88175; G0145

== ENCOUNTER → 2024-02-12 | Outpatient (CLI) | payer OTHER, SELFPAY ==
[2024-02-12 15:12] LABS: Absolute Lymphocyte Count 1.83 X10^3/uL (0.83-4.51); Absolute Neutrophil Count 6.5 X10^3/uL (2.0-7.7); Basophil# 0.03 X10^3/uL; Basophil% 0.3 % (0-1); Eosinophil# 0.32 X10^3/uL; Eosinophils% 3.4 % (0-5); Hematocrit 39.2 % (37-47); Hemoglobin 12.3 g/dL (12.0-15.0); Lymphocyte # 1.83 X10^3/ul (0.83-4.51); Lymphocyte % 19.7 % (19-41); Mean Corp Hgb Conc 31.4 g/dL (32-36); Mean Corpuscular Volume 89.1 fL (81-99); Mean Platelet Vol. 9.6 fl (6.2-12.0); Monocyte# 0.57 X10^3/uL; Monocyte% 6.1 % (0-10); NRBC Flagged by Analyzer 0 % (0-5); Neutrophil # 6.52 X10^3/uL (2.7-7.7); Neutrophil % 70.3 % (47-70); Platelet Count 376 K/mm3 (150-450); RBC Distribution Width CV 12.6 % (11.6-14.6); RBC Distribution Width SD 40.9 fl (35.1-43.9); White Blood Count 9.3 K/mm3 (4.4-11.0)
[2024-02-12 15:29] LABS: Vitamin B12 317 pg/mL (211-911); Vitamin D,25 Hydroxy 62.5 ng/mL
[2024-02-12 15:32] LABS: Hemoglobin A1c 5.1 % (3.8-5.6)
[2024-02-12 15:46] LABS: ALB/GLOB Ratio 0.8 RATIO (0.9-2.4); AST(SGOT) 19 U/L (15-37); Alanine Aminotransfer ALT/SGPT 17 U/L (13-56); Albumin, Serum 3.4 g/dL (3.2-5.0); Alkaline Phosphatase 60 U/L (45-117); Anion Gap 7 (5-15); BUN 10 mg/dL (7-18); BUN/Creat Ratio 12.7 RATIO (10-20); Calcium,Total 9.1 mg/dL (8.5-10.1); Chloride 105 mmol/L (98-107); Creatinine, Serum 0.79 mg/dL (0.55-1.02); EST Glomerular Filtration Rate 95 mL/min (>60); Est Glom Filt Rate - Afr Amer 115 mL/min (>60); Ferritin 15 ng/mL (8-252); Globulin 4.2 g/dL (2.2-4.2); Glucose 79 mg/dL (74-106); Magnesium 2.1 mg/dL (1.6-2.6); Potassium 4.1 mmol/L (3.5-5.1); Protein, Total 7.6 g/dL (6.4-8.2); Sodium Level 137 mmol/L (136-145); Thyroid Stim Hormone (TSH) 1.64 uIU/mL (0.358-3.74)
[2024-02-12 15:49] LABS: Erythrocyte Sedimentation Rate 11 mm/hr (0-30)
[2024-02-16 13:08] LABS: ANTINUCLEAR ANTIBODIES DIRECT Negative (Negative)
== END | disposition home or self-care (01) ==
LOC: MTLAB 12:36
PROVIDERS: PCP Family Medicine; Referring Provider Family Medicine; Visit Provider Family Medicine
DX: R53.83 Other fatigue (principal)
CPT/HCPCS: 36415; 80053; 82306; 82607; 82728; 83036; 83735; 84443; 85025; 85652; 86038; 86140

== ENCOUNTER → 2025-09-06 | Outpatient (CLI) | payer OTHER, SELFPAY ==
[2025-09-06 12:31] LABS: Hematocrit 40.2 % (37-47); Hemoglobin 13.2 g/dL (12.0-15.0); Immature Granulocytes Count 0.030 X10^3/uL (0.0-0.0); Mean Corp Hgb Conc 32.8 g/dL (32-36); Mean Corpuscular Volume 87.2 fL (81-99); Mean Platelet Vol. 9.0 fl (6.2-12.0); NRBC Flagged by Analyzer 0 % (0-5); Platelet Count 388 K/mm3 (150-450); RBC Distribution Width CV 11.9 % (11.6-14.6); RBC Distribution Width SD 38.3 fl (35.1-43.9); Red Blood Count 4.61 M/mm3 (4.2-5.4); White Blood Count 7.6 K/mm3 (4.4-11.0)
[2025-09-06 14:34] LABS: AST(SGOT) 19 U/L (<=31); Alanine Aminotransfer ALT/SGPT 11 U/L (<=34); Albumin, Serum 4.4 g/dL (3.5-5.0); Alkaline Phosphatase 69 U/L (35-104); Anion Gap 14 (5-15); BUN 9 mg/dL (4-19); BUN/Creat Ratio 11.1 RATIO (10-20); Calcium,Total 9.7 mg/dL (7.6-11.0); Carbon Dioxide 23.5 mmol/L (21.0-32.0); Chloride 101 mmol/L (98-108); Globulin 3.0 g/dL (2.2-4.2); Glucose 85 mg/dL (70-99); Iron 161 ug/dL (50-170); Potassium 4.4 mmol/L (3.3-5.1)
[2025-09-06 14:35] LABS: Ferritin 42 ng/mL (22-378)
[2025-09-06 15:18] LABS: FOLATES,SERUM (FOLIC ACID) 9.29 ng/mL (4.60-34.80)
[2025-09-06 16:33] LABS: T3 Total - Triiodothyronine 1.35 ng/mL (0.80-2.00); T4 Total, Thyroxin 8.1 ug/dL (4.8-13.9); Vitamin B12 2808 pg/mL (180-914); Vitamin D,25 Hydroxy 46.5 ng/mL (30-100)
== END | disposition home or self-care (01) ==
PROVIDERS: PCP Family Medicine; Visit Provider Nurse Practitioner
DX: F41.1 Generalized anxiety disorder (principal)
CPT/HCPCS: 36415; 80053; 82306; 82607; 82728; 82746; 83540; 84436; 84443; 84480; 85025